=== PATIENT | female | born 1945 | race Caucasian/White ===

== ENCOUNTER 2024-10-12 23:15 | Inpatient (IN) | payer MEDICARE, SELFPAY ==
[2024-10-12] VITALS (61 sets, daily range): BP systolic 52–226; BP diastolic 33–120; BMI 41.4
[2024-10-12 19:45] LABS: % Basophils 0.3 % (0-2); % Eosinophils 0.2 % (0-6); % Immature Granulocytes 2.4 % (0-0.5); % Lymphocytes 13.1 % (20.5-51.1); % Monocytes 8.7 % (1.7-9.3); % Neutrophils 75.3 % (42.2-75.2); Absolute Immature Granulocytes 0.4 10^3/uL (0-0.05); Absolute Lymphocytes 1.9 10^3/uL (1.2-3.4); Absolute Monocytes 1.3 10^3/uL (0.1-0.6); Absolute Neutrophils 11.1 10^3/uL (1.4-6.5); Hematocrit 33.4 % (37.0-47.0); Mean Corp Hgb Conc. 29.9 g/dL (33.0-37.0); Mean Corpuscular Hgb 29.5 pg (27.0-31.0); Mean Corpuscular Volume 98.5 fL (81.0-99.0); Mean Platelet Volume 10.1 fL (7.4-10.4); Nucleated Red Blood Cells % 0 %; Platelet Count 301 10^3/uL (130-400); Red Blood Cell Count 3.39 10^6/uL (4.20-5.40); Red Cell Dist. Width 14.6 % (11.5-14.5); White Blood Cell Count 14.8 10^3/uL (4.8-10.8)
[2024-10-12] MEDS: NSS 1000 IV (19:51)
[2024-10-12 19:59] LABS: Lactic Acid 7.1 mmol/L (0.7-2.0)
--- NOTE | 2024-10-12 20:03 | ED.GENMED ---
History of Present Illness
General
Chief Complaint: CODE
Source: patient and ambulance crew
Exam Limitations: clinical condition and altered mental status
Time Seen by Provider: 10/12/24 19:25
History of Present Illness
History of Present Illness:
70s to 80syear-old female presented as a Patria Marie, EMS was called for respiratory distress found with agonal respirations with no pulse small pupils intubated given Narcan epi CPR with regain of spontaneous rhythm initial AED stated no shock
advised, she was bucking the ventilator, with bloody secretions given Versed by EMS
Family came to bedside with her meds gabapentin baclofen Lasix metformin currently been on some antibiotics she uses THC Gummies possibly took too many
[id number] states that she had made comments about not wanting to live anymore, though they had a good day yesterday patient lives alone, has taken extra meds previously
Past History
Past History
ED Past Medical History: Other
ED Past Surgical History: Other
Social History
Tobacco: Other
Alcohol: Other
Drug: Other
Living: other
Employment: Other
Family History
Family History: Unable to obtain
Review of Systems
Review of Systems
Unable to obtain full review of systems at this time due to: intubated
All Other Systems: Not applicable
Phy Exam
Physical Exam
Physical Exam:
Physical Exam
General: Elderly female overbreathing the ventilator
Neck: ET tube in place bloody secretions in the ET tube
Heart: Tachycardic
Lungs: Breath sounds with positive ventilation
Abdomen: Obese with large reducible nontender hernia
Neuro: Pupils 4 OU overbreathing the ventilator
Skin: no rash
Psychiatric: well kept. interactive and cooperative
Extremities: no edema. no calf tenderness. negative homans. good distal pulses
Course
Orders/Labs/Results
Orders:
Orders
10/12/24 19:25
0.9% Sodium Chloride 1000 ml [Nss] 1,000 ml IV BOLUS
10/12/24 19:26
Electrocardiogram (*1) Stat
Reason for Study: Other
Other Reason for Exam: CODE
CT Chest/abd/pelvis Angio W/wo Urgent
Comment:
Reason For Exam: CODE
CT Head W/o Iv Contrast Urgent
Comment:
Reason For Exam: CODE
EKG- Treatment ONCE
Arterial Blood Gas Urgent
%Oxygen/Room Air: VENT
CR Chest Portable - 1 View Urgent
Comment:
Reason For Exam: CODE
Reason Study Needs to be Portable: Patient Unstable
10/12/24 19:30
Propofol 1,000,000 Mcg/100 ml [Diprivan] 1,000,000 mcg in 100 ml IV PER PROTOCOL
Indication:: Deep Sedation
Begin Infusion:: Now
Goal:: RASS -3 to -5 or BIS < 60 or ventilator synchrony
Maximum dose in mcg/kg/min:: 50
Initial Dose in mcg/kg/min:: 20
Titration Instructions:: Titrate by 5-10 mcg/kg/min every 5 minutes until RASS -3 to -5 or
Titration Instructions:: BIS < 60 or ventilator synchrony is met.
Titration Instructions:: Administer analgesia bolus dose(s) & titrate analgesia prior to
Titration Instructions:: adjusting sedation.
Taper Instructions:: If RASS is at or below goal for 4 consecutive hours decrease infusion by
Taper Instructions:: 5-10 mcg/kg/min every 2 hours. Do not wean infusion to off if patient is
Taper Instructions:: receiving a continuous NMBA or has received bolus NMBA with the past 3 hrs
Over-sedation Instructions:: If BIS < 40 and synchronous with ventilator decrease infusion by
Over-sedation Instructions:: 5-10 mcg/kg/min every 2 hour until BIS = 40-60.
Notify provider:: immediately if patient exhibits signs/symptoms of propofol-related
Notify provider:: infusion syndrome.
Additional Instructions:: Patient MUST be mechanically ventilated and MUST receive analgesia.
10/12/24 19:33
ABG [Arterial Blood Gas] Stat
%Oxygen/Room Air: VENT
10/12/24 19:36
Acetaminophen Urgent
Comment: ADD ON
Alcohol Urgent
Complete Blood Count/With Diff Urgent
Comprehensive Metabolic Panel Urgent
Lactic Acid Urgent
PTT Urgent
Prothrombin Time Urgent
Salicylate Urgent
Comment: ADD ON
Triglycerides Routine
Comment: baseline levels with propofol infusion
Troponin I Urgent
10/12/24 20:00
NORepinephrine 4 MG/250 ML [Levophed] 4 mg in 250 ml .ROUTE .STK-MED
10/12/24 20:05
Urinalysis Reflex To Culture Urgent
Date Specimen was Collected: 10/12/24
Time Specimen was Collected: 20:02
Urine Drug Abuse Screen Urgent
Date Specimen was Collected: 10/12/24
Time Specimen was Collected: 20:02
Urine Microscopic Reflex Cult Urgent
Urine Culture Urgent
DANELLE Source: U
Specimen Description:
Date Specimen was Collected: 10/12/24
Time Specimen was Collected: 20:02
10/12/24 20:30
NORepinephrine 4 MG/250 ML [Levophed] 4 mg in 250 ml IV PER PROTOCOL
Initial dose in mcg/min, then titrate:: 2
Titrate to keep:: SBP > 90 mmHg
Titrate by mcg/min:: 1-2 mcg/min
Frequency of titrations (minutes):: 5
Maximum dose in ICU in mcg/min:: 30
Maximum dose in IMU in mcg/min:: 8
Maximum dose in IVU in mcg/min:: 4
Begin to taper infusion when:: Remained at goal for 4hrs
Taper by mcg/min:: 1-2 mcg/min
Frequency of taper (minutes) if patient maintains goal:: 30
Taper to off?: Yes
If infusion off & no longer maintaining goal:: Contact Provider
10/12/24 21:12
Add On- LAB Urgent
Tests Added?: Salicylate acetaminophen
10/15/24 06:00
Triglycerides Q3D
Comment: every 72 hours while patient is on propofol
10/18/24 06:00
Triglycerides Q3D
Comment: every 72 hours while patient is on propofol
10/21/24 06:00
Triglycerides Q3D
Comment: every 72 hours while patient is on propofol
Abnormal Lab Results
10/12/24 10/12/24
19:36 20:05
WBC 14.8 H 10^3/uL
(4.8-10.8)
RBC 3.39 L 10^6/uL
(4.20-5.40)
Hgb 10.0 L g/dL
(12.0-16.0)
Hct 33.4 L %
(37.0-47.0)
MCHC 29.9 L g/dL
(33.0-37.0)
RDW 14.6 H %
(11.5-14.5)
Abs Immat Gran (auto) 0.4 H 10^3/uL
(0-0.05)
Absolute Neuts (auto) 11.1 H 10^3/uL
(1.4-6.5)
Absolute Monos (auto) 1.3 H 10^3/uL
(0.1-0.6)
Immature Gran % 2.4 H %
(0-0.5)
Neutrophils % 75.3 H %
(42.2-75.2)
Lymphocytes % 13.1 L %
(20.5-51.1)
PT 14.9 H Sec
(11.4-14.6)
Chloride 108 H mmol/L
(98-107)
Carbon Dioxide 19 L mmol/L
(22-30)
BUN 33 H mg/dl
(7-17)
Creatinine 1.8 H mg/dL
(0.6-1.0)
Glucose 322 H mg/dl
(70-99)
Lactic Acid 7.1 H* mmol/L
(0.7-2.0)
AST 170 H U/L
(14-36)
ALT 64 H U/L
(0-35)
Troponin I 0.156 H* ng/ml
Triglycerides 154 H mg/dl
(10-149)
Ur Occult Blood Reflex 2+ A
(Negative)
Urine RBC 11-15 A /HPF
(0-2)
Urine Bacteria (Reflex) Many A
(Negative)
Urine Glucose 2+ A
(Negative)
Urine Albumin (Reflex) 3+ A
(Neg - Trace)
10/12/24 19:36
10/12/24 19:36
Vital Signs
Initial and Last Documented VS:
Initial Vital Signs
Temp Pulse Resp BP Pulse Ox
97.3 F 90 17 73/39 97
10/12/24 19:30 10/12/24 19:30 10/12/24 19:30 10/12/24 19:30 10/12/24 19:30
Last Documented Vital Signs
Temp Pulse Resp BP Pulse Ox
97.3 F 125 20 149/52 99
10/12/24 19:30 10/12/24 20:30 10/12/24 20:30 10/12/24 20:30 10/12/24 20:30
MDM/Problems Addressed
Differential Diagnosis Includes:
Respiratory arrest cardiac arrest PE sepsis aspiration heart failure pneumonia primary arrhythmia
MDM/Problems Addressed:
Respiratory rate
*Radiology
Radiology exam reviewed: radiology read reviewed
*Pulse Oximetry
Patient hypoxic: no
*EKG
Interpreted by ED Provider?: Yes
Interpretation: abnormal
Comparison EKG: no comparison EKG present
Heart Rate: 144
Rate: tachycardiac
Rhythm: a-fib
Ischemia: non-specific ST changes
*Metal Sheet Roller Operator Interpretation
Rate: tachycardiac
Interpretation: abnormal
Heart Rate: 140
Rhythm: a-fib
*Critical Care Note
Total Time (30-74mins, 75-104mins- exclusive of procedures): 30
ED Attending Note
-
Portions of this chart may have been created with voice recognition software.� Occasional wrong word or��sound alike� substitutions may have occurred due to the inherent limitations of voice recognition software.
Discharge Plan
Departure
Prescriptions:
No Action
gabapentin 600 mg Tablet
600 mg PO TID
metformin 850 mg Tablet
850 mg PO TIDWMEAL
pioglitazone 45 mg Tablet
45 mg PO DAILY
baclofen 10 mg Tablet
10 mg PO QID
cephalexin [Keflex] 500 mg Capsule
500 mg PO TID
furosemide [Lasix] 20 mg Tablet
20 mg PO PRN PRN (Reason: swelling)
Rx Instructions:
take 1 daily as needed
omeprazole 20 mg Tablet,Delayed Release (Dr/Ec)
20 mg PO DAILY
Daily Probiotic 2.5 billion cell Capsule
1 cap PO DAILY
Referrals:
UNKNOWN - PT DOES,NOT KNOW [Family Provider]
Interventions
Interventions:
*Risk Screen - Suicide Last Done: 10/12/24 20:06
*Neglect/Abuse Screening Last Done: 10/12/24 20:06
*ED- Fall Risk Assessment Last Done: 10/12/24 20:06
*ED COVID-19 Vaccine History Last Done: 10/12/24 20:06
ED- Cardiac Assessment Last Done: 10/12/24 20:06
ED- Pulmonary Assessment Last Done: 10/12/24 20:06
Discharge Date and Time
Print Language: TOGOLESE
[2024-10-12 20:05] LABS: APTT 30.8 Sec (23.4-35.0); INR 1.14; PT 14.9 Sec (11.4-14.6)
[2024-10-12 20:08] LABS: AST (SGOT) 170 U/L (14-36); Albumin 4.1 g/dl (3.5-5.0); Alkaline Phosphatase 60 U/L (38-126); Blood Urea Nitrogen 33 mg/dl (7-17); Calcium 8.6 mg/dl (8.4-10.2); Carbon Dioxide 19 mmol/L (22-30); Chloride 108 mmol/L (98-107); Estimated Creatinine Clearance 29 ml/min; Glucose 322 mg/dl (70-99); Potassium 4.6 mmol/L (3.5-5.1); Sodium 143 mmol/L (135-145); Total Bilirubin 0.4 mg/dl (0.2-1.3); Total Protein 6.7 g/dl (6.3-8.2); Triglycerides 154 mg/dl (10-149); eGFR 27.96
[2024-10-12 20:09] LABS: Alcohol None Detected
[2024-10-12 20:14] LABS: ALT (SGPT) 64 U/L (0-35)
[2024-10-12 20:17] LABS: Troponin I 0.156 ng/ml
[2024-10-12 20:17] LABS: Urine Albumin 3+ (Neg - Trace); Urine Bilirubin Negative (Negative); Urine Character Clear (Clear); Urine Color Yellow; Urine Glucose 2+ (Negative); Urine Ketone Negative (Negative); Urine Leukocyte Negative (Negative); Urine Nitrite Negative (Negative); Urine Occult Blood 2+ (Negative); Urine Specific Gravity 1.015 (<1.030); Urine Urobilinogen Negative (Neg - 1+)
[2024-10-12] MEDS: DIPRIVAN 100 IV (20:19)
[2024-10-12 20:23] LABS: Urine Bacteria Many (Negative)
[2024-10-12] MEDS: LEVOPHED 250 IV (20:25)
[2024-10-12 20:27] LABS: Amphetamines Negative (Negative); Barbiturates Negative (Negative); Benzodiazepines Negative (Negative); Buprenorphine Negative (Negative); Cocaine Negative (Negative); Marijuana Negative (Negative); Methadone Negative (Negative); Methamphetamines Negative (Negative); Opiates Negative (Negative); Phencyclidine Negative (Negative); Tricyclic Antidepressants Negative (Negative)
[2024-10-12 21:26] LABS: Acetaminophen < 10 ug/ml (10-30); Salicylate < 1.0 mg/dl (2.0-20.0)
[2024-10-12 21:41] LABS: B.E. -6.3 mmol/L; HCO3 21.9 mmol/L (21-28); O2 Saturation % 94.8 % (94-98); PCO2 56 mmHg (32-35); PO2 73 mmHg (83-108)
[2024-10-12] MEDS: CARDIZEM 125 IV (22:02)
[2024-10-12] MEDS: ZOSYN 50 IV (22:09)
[2024-10-12] MEDS: VANCOCIN 530 MG IV (22:11)
--- NOTE | 2024-10-12 22:50 | HPS.HSE ---
Family Physician
-
Family Physician: NOT KNOW UNKNOWN - PT DOES
Chief Complaint
-
respiratory distress
History of Present Illness
79-year-old female past medical history of diabetes, hypercholesterolemia, neuropathy, GERD, presenting for cardiac arrest. Patient son came to visit her and noticed that she was having respiratory distress and agonal. Patient lives alone. She
was unresponsive and he called EMS who shortly arrived and perform CPR and gave epinephrine. Shock was not advised. She was intubated. She was noted to have pinpoint pupils. She was given Narcan with reportedly some improvement. She had bloody
secretions and was given Versed by EMS.
History is obtained from son and [id number]. They note that she has not been in any respiratory distress or shortness of breath recently. There was some question of her possibly taking too many of her medications and possibly taking THC
Gummies or overdosing on her medications. Apparently there was a comment about her not wanting to live anymore although she had a good day yesterday.
She was recently started on Keflex for infection of her right leg by her primary care physician. This has been an ongoing issue and she was treated with 2 prior courses of antibiotics without improvement.
She does not have any history of cardiac problems.
She does not smoke or drink alcohol or use drugs.
Medical History
Past Medical History
Past Medical History: Reports Other (diabetes, hypercholesterolemia, neuropathy, GERD,)
Past Surgical History: Reports None
Social History
Tobacco: Non-smoker
Alcohol: None
Drug: None
Family History
Family History: Not pertinent
Allergies / Home Medications
Allergies reflects when Allergies were last updated in [facility].
Home Medications with original date entered in [facility]
Allergy/Medication List:
Allergies
Allergy/AdvReac Type Severity Reaction Status Date / Time
No Allergy Information Allergy Verified 10/12/24 19:30
Available
Home Medications
Lactobacillus acidophilus-Bifidobac.animalis 2.5 billion cell capsule (Daily Probiotic) 1 cap PO DAILY 10/12/24
baclofen 10 mg tablet 10 mg PO QID 10/12/24
cephalexin 500 mg capsule 500 mg PO TID 10/12/24
furosemide 20 mg tablet (Lasix) 20 mg PO PRN PRN swelling 10/12/24
gabapentin 600 mg tablet 600 mg PO TID 10/12/24
metformin 850 mg tablet 850 mg PO TIDWMEAL 10/12/24
omeprazole 20 mg tablet,delayed release 20 mg PO DAILY 10/12/24
pioglitazone 45 mg tablet 45 mg PO DAILY 10/12/24
Review of Systems
-
History Source: Family
A 12 point ROS was completed and negative except as noted: No
Physical Exam
Vital Signs
Vital Signs
Temp Pulse Resp BP Pulse Ox
97.3 F 88 28 75/42 93
10/12/24 19:30 10/12/24 22:45 10/12/24 21:22 10/12/24 22:45 10/12/24 22:45
Physical Exam
General: Well Developed, Well Nourished and No Apparent Distress
HEENT: NormoCephalic, Moist mucous membranes and Atraumatic
Respiratory: Clear
Cardiac: S1/S2 and Regular Rhythm; No Murmur or Rub
GI: Soft, Non Tender, Non Distended and Normal Bowel Sounds; No Organomegaly
Rectal: Deferred by Provider
Musculoskeletal: No Clubbing, No Cyanosis and No Edema
Skin: No Rash
Neuro: Nonfocal/grossly intact
Laboratory Results
-
10/12/24 19:36
10/12/24 19:36
Laboratory Results
PT 14.9 Sec (11.4-14.6) H 10/12/24 19:36
INR 1.14 10/12/24 19:36
APTT 30.8 Sec (23.4-35.0) 10/12/24 19:36
pH 7.20 (7.35-7.45) L 10/12/24 21:29
pCO2 56 mmHg (32-35) H 10/12/24 21:29
pO2 73 mmHg (83-108) L 10/12/24 21:29
HCO3 21.9 mmol/L (21-28) 10/12/24 21:29
Lactic Acid 7.1 mmol/L (0.7-2.0) H* 10/12/24 19:36
Total Bilirubin 0.4 mg/dl (0.2-1.3) 10/12/24 19:36
AST 170 U/L (14-36) H 10/12/24 19:36
ALT 64 U/L (0-35) H 10/12/24 19:36
Alkaline Phosphatase 60 U/L (38-126) 10/12/24 19:36
Troponin I 0.156 ng/ml H* 10/12/24 19:36
Data Reviewed
-
Lab Data: Labs Reviewed by me
Old Records: Reviewed
Impression/Plan
-
IMPRESSION:
PLAN:
# Septic shock secondary to multilobar pneumonia
-Leukocytosis
-Lactic acid 7
- CT chest abdomen pelvis shows moderate multilobar pneumonia,
- CT head shows no acute abnormality
- IV fluids
-Blood cultures
- Vancomycin/Zosyn
- Levophed started but patient became hypotensive so this was stopped but again had to be restarted
- Trend lactate
- On propofol drip
# Cardiac arrest possibly likely secondary to hypoxemic respiratory failure from pneumonia
-No clear evidence of drug overdose
- UDS negative
- Tylenol negative, salicylates negative
- Alcohol level negative
# Acute kidney injury
- IV fluids
- Hold Lasix
# New onset atrial fibrillation with RVR secondary to septic shock
- Cardizem drip started, and later stopped after patient in sinus rhythm
# Nonischemic myocardial injury likely from cardiac arrest/demand ischemia from atrial fibrillation with RVR/sepsis
- Troponin of 0.156
- Trend troponins
- Check EKG
# Hyperglycemia secondary to infection
# Type 2 diabetes
- Hold metformin, pioglitazone
- Insulin sliding scale
# Right leg infection
- Was started on Keflex 2 days ago
# Transaminitis secondary to septic shock/cardiac arrest
- Continue to monitor
Presumably chronic anemia
- Hemoglobin 10
GERD
- IV Protonix 40 daily
Chronic neuropathy/chronic pain
- Normally on baclofen
Full code
DVT prophylaxis�Heparin
N.p.o.
[2024-10-13] VITALS (27 sets, daily range): BP systolic 75–150; BP diastolic 27–91; BMI 41.3; BMI 41.2
[2024-10-13] MEDS: NSS 1000 IV ×2 (00:16→08:58)
[2024-10-13 01:24] LABS: Glucose - Point of Care 203 mg/dl (70-99)
[2024-10-13] MEDS: NOVOLIN R 4 UNITS IV (02:34)
[2024-10-13 02:38] LABS: Glucose - Point of Care 234 mg/dl (70-99)
[2024-10-13] MEDS: NOVOLIN R INSULIN INFUSION 100 IV (02:39)
--- NOTE | 2024-10-13 03:21 | PTCARENOTE ---
Pt received from ED. Intubated, on propofol and levophed. No response to verbal stimuli. +corneal reflex, pupils 2mm and sluggish. Weak cough/gag. Moves hands/feet, weak. Placed on cerebell monitor as ordered, seizure burden 0% at this time. Sinus
tach, 120s. remains on levophed to maintain MAP >65. # 6.5 ETT, 24 @ the lip, AC 24/450/40%/+5. Suctioned for bloody secretions, crackles t/o. OGT to LIWS with brown output. Mcgowan in place, draining yellow urine. B/L LE cellulitis, R with small open
area on posterior calf.
[2024-10-13 03:30] LABS: Glucose - Point of Care 176 mg/dl (70-99)
--- NOTE | 2024-10-13 04:56 | W.PN.SEPSIS ---
Sepsis
Vital Signs
Temp Pulse Resp BP Pulse Ox
36.1 F L 115 11 138/74 100
10/13/24 00:45 10/13/24 04:30 10/13/24 04:30 10/13/24 03:45 10/13/24 04:30
Physical Exam
Physical Exam:
A focused exam was performed after fluid resuscitation.
Capillary Refill
Bilateral Upper Extremity:
Raj Time: Less than 3 sec
Bilateral Lower Extremity:
Raj Time: Less than 3 sec
Pulse Evaluation
Bilateral Radial:
Pulse Evaluation: Present
Bilateral Dorsalis Pedis:
Pulse Evaluation: Present
--- NOTE | 2024-10-13 04:57 | W.PN.UPDATE ---
Update Note
Progress Note Update
ARTERIAL LINE (A-Line) PLACEMENT
Date: 10/13/24
Time: 0445
Indication: Hemodynamic monitoring
Consent: implied, emergent
A time-out was completed verifying correct patient, procedure, site, positioning, and special equipment if applicable. Francesco�s test was performed to ensure adequate perfusion. The patient�s left wrist was prepped and draped in sterile fashion. A 20G
Arrow arterial line was introduced into the radial artery. The catheter was threaded over the guide wire and the needle was removed with appropriate pulsatile�blood return. The catheter was then sutured with a sterile dressing. Perfusion to the
extremity distal to the point of catheter insertion was checked and found to be adequate.
Estimated Blood Loss: <5cc
The patient tolerated the procedure well and there were no complications.
[2024-10-13] MEDS: ZOSYN 50 IV ×4 (04:59→21:08)
[2024-10-13 05:05] LABS: Glucose - Point of Care 42 mg/dl (70-99)
[2024-10-13] MEDS: DEXTROSE 50% SYRINGE 12.5 GRAMS IV ×2 (05:06→06:48)
[2024-10-13 05:07] LABS: % Basophils 0.1 % (0-2); % Immature Granulocytes 0.7 % (0-0.5); % Lymphocytes 6.7 % (20.5-51.1); % Neutrophils 84.5 % (42.2-75.2); Absolute Immature Granulocytes 0.1 10^3/uL (0-0.05); Absolute Lymphocytes 0.9 10^3/uL (1.2-3.4); Absolute Monocytes 1.1 10^3/uL (0.1-0.6); Absolute Neutrophils 11.3 10^3/uL (1.4-6.5); Hematocrit 29.8 % (37.0-47.0); Hemoglobin 9.6 g/dL (12.0-16.0); Mean Corp Hgb Conc. 32.2 g/dL (33.0-37.0); Mean Corpuscular Hgb 29.4 pg (27.0-31.0); Mean Corpuscular Volume 91.1 fL (81.0-99.0); Mean Platelet Volume 10.3 fL (7.4-10.4); Nucleated Red Blood Cells % 0 %; Platelet Count 305 10^3/uL (130-400); Red Blood Cell Count 3.27 10^6/uL (4.20-5.40); Red Cell Dist. Width 14.2 % (11.5-14.5); White Blood Cell Count 13.4 10^3/uL (4.8-10.8)
[2024-10-13 05:20] LABS: Glucose - Point of Care 80 mg/dl (70-99)
[2024-10-13 05:23] LABS: COVID-19 Antigen Negative (Negative)
[2024-10-13 05:34] LABS: Lactic Acid 3.4 mmol/L (0.7-2.0)
[2024-10-13 05:38] LABS: ALT (SGPT) 62 U/L (0-35); AST (SGOT) 132 U/L (14-36); Albumin 3.7 g/dl (3.5-5.0); Alkaline Phosphatase 60 U/L (38-126); Blood Urea Nitrogen 36 mg/dl (7-17); Calcium 8.5 mg/dl (8.4-10.2); Carbon Dioxide 20 mmol/L (22-30); Chloride 113 mmol/L (98-107); Estimated Creatinine Clearance 29 ml/min; Glucose < 30 mg/dl (70-99); Magnesium 0.8 mg/dl (1.6-2.3); Phosphorus 2.8 mg/dl (2.5-4.5); Potassium 3.8 mmol/L (3.5-5.1); Sodium 141 mmol/L (135-145); Total Bilirubin 0.5 mg/dl (0.2-1.3); Total Protein 6.3 g/dl (6.3-8.2); eGFR 27.96
[2024-10-13] MEDS: MAGNESIUM SULFATE 100 IV (05:48)
--- NOTE | 2024-10-13 06:37 | W.PN.UPDATE ---
Update Note
Progress Note Update
3615- Patient went into rapid afib heart rate 160s, SBP 70s. Started amiodarone gtt with amio 150 bolus IV. Heart rate improved 100s. Patient continues on levophed gtt.
[2024-10-13 06:41] LABS: Glucose - Point of Care 55 mg/dl (70-99)
--- NOTE | 2024-10-13 06:43 | PHA.VAN.IN ---
Addendum entered and electronically signed by Parisa Ibarra [facility] 10/13/24 08:45:
Laboratory Tests
10/13/24
08:06
Random Vancomycin 11.8
Appropriate to continue with 1g x1 today
Original Note:
Assessment
- Assessment
Renal Function: Unknown baseline
Concomitant Antimicrobials: piperacillin/tazobactam
Plan
- Plan
Initial / Loading Dose: 1500mg - 10/12 22:11
Maintenance Regimen: dosing by level - give additional 1000mg x1
Monitoring: random 10/14 0600
MRSA Screen: Ordered per protocol
Pharmacokinetics Vancomycin I
- -
Patient Age: 79
Patient Sex: Female
Vancomycin Day #: 1
Indication: Pulmonary/Respiratory
Requesting Provider: Dr. Resendiz
Height / Weight:
Height 5 ft 3 in
Actual Weight 105.6 kg
Pertinent Past Medical History: BMI ~41
- Vital Signs / Lab Results
Temp Pulse Resp BP Pulse Ox
100.4 F H 110 28 138/74 100
10/13/24 06:06 10/13/24 05:15 10/13/24 05:15 10/13/24 03:45 10/13/24 05:15
Lab Results - Hematology
10/12/24 10/13/24
19:36 04:51
WBC 14.8 H 13.4 H
Lab Results - Chemistry
10/12/24 10/13/24
19:36 04:51
BUN 33 H 36 H
Creatinine 1.8 H 1.8 H
Estimated Creat Clear 29 29
Albumin 4.1 3.7
10/12/24 10/13/24
19:36 04:51
Lactic Acid 7.1 H* 3.4 H
Lab Results - Urine
10/12/24
20:05
Urine Nitrite (Reflex) Negative
Leukocyte Esterase Rfl Negative
Urine WBC (Reflex) 6-10
Ur Squamous Epith Cells 3-5
Urine Bacteria (Reflex) Many A
Microbiology Results
10/13/24 04:51 Influenza Types A & B (OLIVIA) - Final
Nasal Swab Negative for Influenza A & B, NAAT
Negative results must be combined with clinical observations
and patient history.
Nucleic Acid Amplification test (NAAT)performed on the
[employer] platform.
[2024-10-13] MEDS: NEO-SYNEPHRINE 250 IV ×4 (06:44→17:24)
[2024-10-13] MEDS: PITRESSIN 100 IV ×2 (06:45→14:06)
[2024-10-13] MEDS: CORDARONE 103 MG IV (06:56)
[2024-10-13] MEDS: TYLENOL ORAL SOLUTION 650 MG TUBE (07:00)
[2024-10-13 07:10] LABS: Glucose - Point of Care 204 mg/dl (70-99)
[2024-10-13] MEDS: LEVOPHED 250 IV (07:30)
--- NOTE | 2024-10-13 07:41 | PTCARENOTE ---
Pt with episode of hypotension and tachycardia, rapid afib. Levophed switched to constance and vaso. Amio bolus and gtt as per order. Labile BP and HR. Report given to oncoming RN.
--- NOTE | 2024-10-13 08:16 | W.PN.HOSP.TC ---
Addendum entered and electronically signed by Swapnil Barajas DO 10/13/24 15:44:
Discussed with cardiology and ICU. Low suspicion for ACS, more likely demand ischemia from cardiac arrest. May ultimately need AC with atrial fibrillation if she recovers though cardiology okay with holding off on heparin drip for now until more
information gathered in underlying bleeding thoroughly ruled out
Patient was started on insulin drip for glycemic control. 1 episode of hypoglycemia though stable thereafter
Original Note:
Today's Communication/Plan
-
Broad-spectrum antibiotics
Vasopressors
Amio + Heparin drips
TTE
follow cultures
Assessment / Plan
Assessment / Plan
#[id number] cardiac arrest
#Hypomagnesemia
-Suspect respiratory driven event 2/2 CAP v. aspiration; cannot rule out torsades with recent mag level 0.8
-Unclear amount of downtime however no obvious signs of anoxic brain injury initially
-Initial concern for polypharmacy versus extra doses of medicines however tox screen negative
-Imaging on arrival showed findings suggestive of moderate multilobar PNA
-No known history of heart disease, lung disease, family history of early cardiac
-As of this morning does respond to external stimuli, undergoing EEG
Plan
-Order echocardiogram to assess LVEF and valves, monitor telemetry
-Consideration of cooling protocol per ICU
-Trend troponin to peak, serial ECG
-Replete magnesium (>2) and potassium (>4)
-Follow-up EEG
#VDRF
#Acute hypoxemic respiratory failure
#Septic shock secondary to CAP
#Prerenal ALONSO
-Suspect initial pneumonia as catalyst for sequence of events that brought her here
-Cannot completely rule out aspiration event though no history of dysphagia
-Intubated in the field and started on MV here; on CMV 24/450/60/5, Peak 40
-Started on IV vancomycin and Zosyn empirically after cultures in the ED
-Most recent blood gas shows pH 7.33/PO2 81; requiring 3 vasopressors
Plan
-Continue with and wean vasopressors and give IVF; MAP goal >65
-Trend ABG and monitor daily with serial CXR
-Continue broad-spectrum antibiotics and follow cultures
-Monitor BMP, UOP, CBC, temperature curve
-SAT + SBT when improved
#New onset AF with RVR
-Developed new onset AF and developed RVR with heart rate near 160 overnight
-[id number] score >3, likely nonvalvular; indication for AC such as DOAC
-Started on amiodarone drip, continue on telemetry
-Hemodynamically adequate on vasopressors
Plan
-Continue IV amiodarone
-Start IV heparin drip
-Cardiology consulted
-Telemetry
#Elevated troponin
-Suspect an NIMI with cardiac arrest; family denies any previous cardiac history
-Troponin has up trended with most recent value new 1.4; no ischemic findings on ECG
-Unable to provide history of associated chest pain though none reported recently
-Was started on IV heparin drip as above for new onset AF and cardioembolic prophylaxis
Plan
-Trend troponin to peak with serial ECG
-Continue IV heparin drip as above
-Follow-up echo for new WMA
-Telemetry
#NIDDM with neuropathy
-Home regimen includes metformin 3 times daily (?) and pioglitazone
-Also takes gabapentin 3 times daily for associated peripheral neuropathy
-Started on ISS with Accu-Cheks here
-BG goal 140-180
#GERD
-Home regimen includes omeprazole
-No history of Guerrero's esophagus or erosive disease
#Dyslipidemia
-No known ASCVD history, family denies coronary stents
-Home regimen does not include statin therapy
-Should be on at least moderate intensity with diabetes history
Diet: N.p.o.
DVT prophylaxis: SQ heparin
CODE STATUS: Full code
I discussed CODE STATUS with family at the bedside. They state that the patient has stated in the past that she did not want to be kept alive artificially. Remains full code for now, will discuss further when more family arrives into town to visit
Anticipated Discharge: > 48 hours
Subjective/Interval History
-
Date of Service: October 13, 2024
Seen and examined at the bedside. No acute events since admission. Febrile at 100.9 �F, hemodynamically adequate on 3 vasopressors, supported on mechanical ventilator with P peak equal 40 mmHg
Magnesium improved from 0.8-2.1 after repletion with 4 g. Creatinine stable at 1.8 x 3 lab draws on IVF and pressors.
Unable to obtain ROS due to intubated status. Does respond to external stimuli
Objective Data
-
Labs:
Laboratory Results
10/12/24 10/12/24 10/13/24
19:26 21:29 04:51
WBC 13.4 H
Hgb 9.6 L
Hct 29.8 L
Plt Count 305
HCO3 Cancelled 21.9
Sodium 141
Potassium 3.8
Chloride 113 H
Carbon Dioxide 20 L
BUN 36 H
Creatinine 1.8 H
Glucose < 30 L*
Calcium 8.5
Total Bilirubin 0.5
AST 132 H
ALT 62 H
Alkaline Phosphatase 60
Vital Signs:
Vital Signs
Temp Pulse Resp BP Pulse Ox
100.9 F H 73 21 138/74 97
10/13/24 07:00 10/13/24 07:30 10/13/24 07:30 10/13/24 03:45 10/13/24 07:20
I&O
10/12/24 10/13/24 10/14/24
06:59 06:59 06:59
Intake Total 347.8 / 347.8
Output Total 375 / 375
Balance -27.2 / -27.2
Review of Systems
-
Unable to obtain full review of systems at this time due to: Patient Intubation
Physical Exam
-
General: Well Developed, No Apparent Distress, Intubated and Morbidly Obese
HEENT: Normocephalic, Atraumatic, Moist Mucous Membranes, Anicteric and PERRLA
Respiratory: Rhonchi and Non Labored Respirations; Negative Wheezes, Rales or Accessory Resp Muscle Use
Cardiac: S1/S2 and Irregular Rhythm; Negative Murmur, Rub, JVD, Gallop or Tachycardic
GI: Soft, Nontender, Nondistended and Normal Bowel Sounds
Musculoskeletal: No Clubbing, No Cyanosis and No Edema
Skin: Warm and Dry; Negative Rash or Jaundice
Neuro: Sedated and Nonfocal/Grossly Intact
Data Reviewed
-
Labs: Labs Reviewed by me, Discussed with Physician (Midwife) and Discussed with Patient
--- NOTE | 2024-10-13 08:19 | CON.INTV ---
Consultation
Consultation Request
Date/Time Consultation Requested: 10/13/2024
Date/Time Consultation Performed: 10/13/2024
Requesting Provider: NHAN Mak
Performing Provider: Dr. Roy
Reason for Consultation: Cardiac arrest
Medical History
-
Chief Complaint: Found unresponsive without pulse
History of Present Illness:
79-year-old female with a past medical history of JAVIER, paroxysmal A-fib, DM type II, fibromyalgia, history of UTI, anemia, depression, anxiety, and chronic back/leg pain who presented with [id number] cardiac arrest. History obtained from
medical records and family members. Patient's son, Frantz and [id number], Bonnie in addition to patient's daughter, Claudette, all present at bedside and assisted with the history. Patient was found unresponsive at around 530�6 PM on
10/12/2024. She was last known normal the morning prior although she says she was not feeling well at that time. The patient does live alone. When the patient was found unresponsive, 911 was called, and CPR was started 10 minutes after the 911
call. No shockable rhythm, 1 mg of epinephrine was given in addition to lidocaine. She also was given Narcan with reportedly some improvement in her reactions. She was intubated in the field and given a total of 10 mg Versed by EMS. She
reportedly was given Keflex recently for right lower extremity cellulitis which is an ongoing issue for her with 2 prior courses of antibiotics without improvement. Initially she was afebrile to 97.3 �F, pulse rate 90, respiratory rate of 17, BP
73/39 and saturating 97%. Labs showed leukocytosis to 14.8, Hb 10, hypercapnia with [id number], pH 7.2, serum bicarbonate level 19, creatinine 1.8, glucose 322, lactate 7.1, troponin 0.156, urine drug screen negative, alcohol level negative and
COVID-19 antigen negative. Blood cultures were collected in addition to a urine culture. CT head, chest, abdomen, pelvis were all performed showing moderate multifocal pneumonia and no acute intracranial abnormality. Found to be in rapid A-fib
and was given Cardizem, and also 1 L NS 0.9%, Vanco and Zosyn. Developed hypotension requiring Levophed. She was admitted to the ICU and advertising display rotator services consulted for additional management/recommendations.
When I saw the patient this morning she was intubated on AC/CMV at 24/400/40%/5 with PIP 39 cmH2O, plateau pressure 26 cmH2O, VTe 373 mL, and breathing at 24 breaths/minute. Current heart rate 72, BP via A-line 156/64, and saturating 97%.
Currently on insulin drip at 1.2 units/h, and on Mohsen-Synephrine at 200 mcg/min, Levophed at 1 mcg/min and vasopressin at 0.03 units/min. She remains unresponsive. Ceribell is currently attached and showing zero seizure burden.
PMHx: History of JAVIER, paroxysmal A-fib, DM type II, fibromyalgia, hayfever, pleurisy, history of UTI, anemia, eczema, depression, anxiety, chronic back/leg pain
PSHx: Cholecystectomy, tonsillectomy
Past Medical History
Past Medical History: Other (Above as per HPI)
Past Surgical History: Other (Above as per HPI)
Social History
Tobacco: Non-smoker
Alcohol: Occasional (Rarely)
Drug: None
Family History
Family History: CAD (Father) and Diabetes (Mother, maternal grandfather, maternal uncle, maternal aunt, sibling)
Allergies / Home Medications
Allergies
Allergy/AdvReac Type Severity Reaction Status Date / Time
No Allergy Information Allergy Verified 10/12/24 19:30
Available
Home Medications
�Medication �Instructions �Recorded �Confirmed �Last Taken �Type
Lactobacillus 1 cap PO DAILY Supplement 10/12/24 10/12/24 Unknown History
acidophilus-Bifidobac.animalis 2.5
billion cell capsule (Daily
Probiotic)
baclofen 10 mg tablet 10 mg PO QID Muscle Spasms 10/12/24 10/12/24 Unknown History
cephalexin 500 mg capsule 500 mg PO TID Infection 10/12/24 10/12/24 Unknown History
furosemide 20 mg tablet (Lasix) 20 mg PO PRN PRN swelling 10/12/24 10/12/24 Unknown History
gabapentin 600 mg tablet 600 mg PO TID Pain 10/12/24 10/12/24 Unknown History
metformin 850 mg tablet 850 mg PO TIDWMEAL Diabetes 10/12/24 10/12/24 Unknown History
omeprazole 20 mg tablet,delayed 20 mg PO DAILY Gastrointestinal 10/12/24 10/12/24 Unknown History
release Issue
pioglitazone 45 mg tablet 45 mg PO DAILY Diabetes 10/12/24 10/12/24 Unknown History
Review of Systems
-
Unable to Obtain full review of systems at this time due to: Acuity and Patient Intubation
Vitals / Labs / Diagnostic Testing
Vital Signs
Temp Pulse Resp BP Pulse Ox
101 F H 74 24 138/74 97
10/13/24 09:09 10/13/24 10:30 10/13/24 10:30 10/13/24 03:45 10/13/24 10:30
Lab Data
10/13/24 04:51
10/13/24 10:01
Laboratory Results
10/12/24 10/12/24 10/12/24
19:26 19:36 21:29
PT 14.9 H
INR 1.14
APTT 30.8
pH Cancelled 7.20 L
pCO2 Cancelled 56 H
pO2 Cancelled 73 L
HCO3 Cancelled 21.9
O2 Delivery Level Cancelled
10/13/24
10:01
PT
INR
APTT
pH 7.33 L
pCO2 35
pO2 81 L
HCO3 18.5 L
O2 Delivery Level 40%
Microbiology
10/13/24 04:51 Urine Legionella Urinary Antigen - Final
Negative for Legionella pneumophila Serogroup 1 antigen.
A negative result does not rule out the possiblity of
Legionella infection due to other serogroups or species of
Legionella. Clinical correlation is recommended.
10/13/24 04:51 Urine Streptococcus pneumoniae Antigen (M - Final
Negative for Streptococcus pneumoniae antigen.
A negative result does not exclude infection with
Streptococcus pneumoniae. Clinical correlation is
recommended.
10/13/24 04:51 Nasal Swab Influenza Types A & B (OLIVIA) - Final
Negative for Influenza A & B, NAAT
Negative results must be combined with clinical observations
and patient history.
Nucleic Acid Amplification test (NAAT)performed on the
[employer] platform.
Diagnostic Testing:
Physical Exam
-
HEENT: Normocephalic, Anicteric and Other (Thick neck)
Cardiovascular: S1/S2, Regular Rhythm and Peripheral Edema (+2 lower extremity pitting edema bilaterally)
Respiratory: Wheeze (negative), Rhonchi (negative) and Other (Coarse breath sounds heard bilaterally)
GI: Soft, Distended (Significant abdominal obesity), Non Tender and Normal Bowel Sounds
Neurology: Tremors (negative) and Other (Absent gag, cough, and pupillary reflexes although intact corneal reflexes bilaterally; unresponsive; pupils 2 mm bilaterally and nonreactive)
Skin: Warm, Dry and Other (Erythema on the distal right lower extremity with bilateral chronic venous stasis dermatitis changes)
General: Respiratory Distress (negative), Chills (negative), Sweats (negative) and Other (Morbidly obese elderly female, intubated and unresponsive)
Assessment
-
Assessment: 79-year-old female with a past medical history of JAVIER, paroxysmal A-fib, DM type II, fibromyalgia, history of UTI, anemia, depression, anxiety, and chronic back/leg pain who presented with [id number] cardiac arrest. History
obtained from medical records and family members. Patient's son, Frantz and bctazors-ct-uxd, Bonnie in addition to patient's daughter, Claudette, all present at bedside and assisted with the history. Patient was found unresponsive at around
530�6 PM on 10/12/2024. She was last known normal the morning prior although she says she was not feeling well at that time. The patient does live alone. When the patient was found unresponsive, 911 was called, and CPR was started 10 minutes after
the 911 call. No shockable rhythm, 1 mg of epinephrine was given in addition to lidocaine. She also was given Narcan with reportedly some improvement in her reactions. She was intubated in the field and given a total of 10 mg Versed by EMS. She
reportedly was given Keflex recently for right lower extremity cellulitis which is an ongoing issue for her with 2 prior courses of antibiotics without improvement. Initially she was afebrile to 97.3 �F, pulse rate 90, respiratory rate of 17, BP
73/39 and saturating 97%. Labs showed leukocytosis to 14.8, Hb 10, hypercapnia with [id number], pH 7.2, serum bicarbonate level 19, creatinine 1.8, glucose 322, lactate 7.1, troponin 0.156, urine drug screen negative, alcohol level negative and
COVID-19 antigen negative. Blood cultures were collected in addition to a urine culture. CT head, chest, abdomen, pelvis were all performed showing moderate multifocal pneumonia and no acute intracranial abnormality. Found to be in rapid A-fib
and was given Cardizem, and also 1 L NS 0.9%, Vanco and Zosyn. Developed hypotension requiring Levophed. She was admitted to the ICU and advertising display rotator services consulted for additional management/recommendations.
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
Impression:
#Ale-qu-fffjpuhx cardiac arrest
#Acute respiratory failure with hypoxia + hypercapnia now on mechanical ventilation (intubated in the field via EMS on 10/12/2024)
#Multifocal pneumonia likely due to aspiration during cardiac arrest
#Atrial fibrillation with RVR requiring Cardizem drip and now on amiodarone drip and in NSR as of this morning (she carries a history of paroxysmal A-fib)
#Leukocytosis
#Anemia
#ALONSO
#Lactic acidosis
#Transaminitis
#Elevated troponin
#Unresponsiveness with suspected hypoxic-ischemic encephalopathy
#History of recurrent right lower extremity cellulitis
#GERD
#Morbid obesity
#DM type II
Plan:
- Patient was found unresponsive without a pulse and pupils pinpoint. When EMS arrived, CPR/ACLS started and she reportedly regained ROSC rather quickly although this was approximately 10 minutes after she was found unresponsive
- Family also found a letter that the patient wrote essentially stating that she did not want to continue living anymore and that she was ending her life
- The family says that the patient would not want to be living on machines and life support and they are heading towards withdrawal of care likely within the next 24 hours
- Initial CT head did not show any acute intracranial abnormality however this will be repeated tomorrow morning as she does not have a gag reflex and pupils are minimally reactive hence I do believe she is developing hypoxic�anoxic encephalopathy
- Neurology is now consulted
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
- She has received some pushes of sedation via fentanyl as she is biting the ET tube but there has been no purposeful movements or commands that she has followed since she has arrived here in the ICU, and the family is aware of this
- Apply cooling blanket to keep temperature at 36 �C; start Tylenol ATC for today to also help avoid fever
- Patient also developed rapid atrial fibrillation in the ER and is currently on amiodarone drip
- Cardiology consulted
- At the time of my evaluation, she was in normal sinus rhythm
- Replete K>4, Mg>2
- If she goes back into A-fib then keep HR<110
- Check echo; no concern for acute decompensated heart failure based on her CT chest from admission
- Continue with mechanical ventilation - given that the patient is unresponsive, she is not appropriate to do an SBT at this time
- Maintain plateau pressure <30 and titrate FiO2 + PEEP to keep SpO2 >90-94%
- Continue aspiration precautions; keep HOB >30-45�
- prn nebulized bronchodilators - not currently bronchospastic
- Oropharyngeal + deep ETT suctioning with subglottic as needed
- Daily CXR + blood gas
- Daily vent adjustments as needed based on blood gas and SaO2
- Try to avoid sedation if possible as this will help prognosticate
- Continue with broad-spectrum antibiotics with Vanco/Zosyn
- Follow-up respiratory culture, blood cultures + urine cultures
- Trend WBC and monitor temperature curve
- Patient is currently on Mohsen-Synephrine, Levophed and vasopressin � titrate these drips to maintain MAP>65
- She does have inadequate IV access and is a difficult stick hence PICC line was ordered however they were unable to advance the wire. IR will place a central line today
- Given that she is on multiple vasopressors with severe pneumonia, start hydrocortisone 50mg IV q6hr
- Trend lactate until <2 mmol/L
- Trend LFTs and sCr, monitor UOP with strict I/O; she is at risk of becoming volume overloaded given her ALONSO
- Maintain euglycemia with goal BG 140-180, currently on insulin drip
- Trend H/H and transfuse if needed to keep Hb>7-8g/dL; keep plt>20k, unless there is concern for bleeding then keep plt>50k
- DVT ppx: HSQ
Very poor prognosis. All of the family's questions were answered and emotional support was provided
Critical care statement: A total of 40 minutes of critical care time was provided for this patient today. This includes management of unstable vital signs, evaluation of the patient at bedside, reviewing the patient's pertinent medical records
including radiographs, microbiology, laboratory evaluations, and discussion with primary team, consultants, pharmacy, nutrition, physical therapy, case management, charge nurse, critical care nursing, and respiratory therapy.
Data:
CTA chest/abdomen/pelvis with/without contrast 10/12/2024:
Findings suggesting moderate multilobar pneumonia.
Bowel containing and nonbowel containing ventral hernias. No evidence of incarceration or strangulation. No evidence of obstruction.
Diverticulosis.
Mild volume overload or third spacing.
Mild cardiomegaly
Exophytic cystic left thyroid nodule best evaluated by a nonurgent dedicated thyroid ultrasound.
Patient was seen and evaluated on 10/13/2024
[2024-10-13 08:25] LABS: Glucose - Point of Care 125 mg/dl (70-99)
[2024-10-13] MEDS: SUBLIMAZE 50 MCG IV ×5 (08:25→17:04)
[2024-10-13] MEDS: PROTONIX IV 40 MG IV (08:26)
[2024-10-13] MEDS: HEPARIN 5000 UNITS SC ×2 (08:26→19:48)
[2024-10-13] MEDS: NSS (PRESERVATIVE FREE) 10 ML IV (08:26)
--- NOTE | 2024-10-13 08:37 | PTCARENOTE ---
patient report received, in rapid afib/ fluttter with amiodarone bolus infusing, patient hypotensive, gtts per work list. patient converted to sinus bradycardia then nsr at end of bolus, period hypotension post conversion. amiodarone gtt per
orders.LIMITED IV ACCESS. VAT RN paged to obtain additional site. glycemic unable to be resumed until site obtained due to incompatibilities. patient with movement arms, does not follow commands. rigid. increased nonverbal pain cues. fentanyl bolus
administered. ett to vent, moderate amount dark bloody oral secretions. increased rhonchi,crackles bilaterally. abdomen soft. +hernia. booker draining scant yellow urine. ogt in place, placement verified by air auscultation. restraints maintained for
patient safety as patient not following any commands.
[2024-10-13 08:44] LABS: Vancomycin Random 11.8 ug/ml
[2024-10-13 09:40] LABS: Glucose - Point of Care 127 mg/dl (70-99)
[2024-10-13 09:49] LABS: Glycohemoglobin (HgbA1c) 5.7 % (4.0-5.6)
[2024-10-13 10:13] LABS: B.E. -6.8 mmol/L; HCO3 18.5 mmol/L (21-28); O2 Saturation % 96.8 % (94-98); PCO2 35 mmHg (32-35); PO2 81 mmHg (83-108); pH 7.33 (7.35-7.45)
[2024-10-13 10:15] LABS: O2 Therapy 40%
[2024-10-13 10:24] LABS: Lactic Acid 3.4 mmol/L (0.7-2.0)
[2024-10-13 10:26] LABS: ALT (SGPT) 54 U/L (0-35); AST (SGOT) 105 U/L (14-36); Albumin 3.3 g/dl (3.5-5.0); Alkaline Phosphatase 56 U/L (38-126); Blood Urea Nitrogen 37 mg/dl (7-17); Calcium 8.1 mg/dl (8.4-10.2); Carbon Dioxide 19 mmol/L (22-30); Chloride 112 mmol/L (98-107); Estimated Creatinine Clearance 29 ml/min; Glucose 125 mg/dl (70-99); Magnesium 2.1 mg/dl (1.6-2.3); Phosphorus 3.2 mg/dl (2.5-4.5); Potassium 3.9 mmol/L (3.5-5.1); Sodium 140 mmol/L (135-145); Total Bilirubin 0.8 mg/dl (0.2-1.3); Total Protein 5.8 g/dl (6.3-8.2); eGFR 27.96
--- NOTE | 2024-10-13 11:02 | VATNOTE ---
PICC ordered for pt. Cephalic vein only suitable vessel visualized by this RN on the ultrasound. Vessel accessed and wire able to be threaded, but actual PICC catheter unable to be threaded. Only about 25 cm able to be inserted into cephalic vein.
Catheter seemed to be coiling in pt. Decision made to place midline in vessel instead. Midline placed w/ no issues. Will continue to monitor.
[2024-10-13 11:03] LABS: Glucose - Point of Care 111 mg/dl (70-99)
--- NOTE | 2024-10-13 11:36 | CM ---
CM met with TYLER/Ubaldo at nurse's station
Pt resides alone in a 1st floor apartment with 0STE
Pt is indep with her ADLs with use of a WW
She utilizes a WC while in the community, not able to self propel
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
Pt was to have initial appt at [facility] wound [facility] on Tuesday
Pt has a HHS, tub chair and grab bars
Pt is typically AxO 2-3, she manages her own financials
DIL fills her med box
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
No VN/SNF hx
Waiver application has been started with the [employer]
Application pending
PCP- Dr Lala Hamlin
Rx- [facility] [place]
Pt does not have POA or advanced directives
ICU on vent day #2
Her son/DIL local and help as needed
Her dtr/Jes is in [place] and flying in soon
Per DIL, pt has not taken gummies in a few years
Previously utilized them for sleep
Discharge Disposition- TBD
--- NOTE | 2024-10-13 11:46 | PTCARENOTE ---
VAT RN unable to place picc, midline inserted right arm. ela teacher updated, aware of need for central line placement. labs sent and resulted. during reassessment and care, patient became agitated, thrashing legs, rigid arms. eyes wide open but not
making eye contact or following commands. hypotensive:MAP 40's with pulse oximeter 80's during period agitation. medicated with fentanyl bolus per orders. levophed titration per work list. sputum sent. lungs with coarse breath sounds bilaterally.
family at bedside. updated.
[2024-10-13] MEDS: VANCOCIN 200 IV (12:09)
[2024-10-13] MEDS: OFIRMEV 100 IV (12:39)
--- NOTE | 2024-10-13 12:53 | CON.NEURO ---
Addendum entered and electronically signed by Roel Butt MD 10/14/24 08:05:
History of present illness:
Patient was in her usual state of health until being discovered unresponsive at which time EMS was contacted. The patient received CPR and was intubated. The patient was unable to provide her own medical history and the medical history is obtained
entirely from review of the patient's medical records.
Original Note:
Neuro Assessment/Plan
Assessment
Change in mental status following cardiac arrest secondary to multi lobar pneumonia producing septic shock
Based on the patient's unknown downtime and possible myoclonus, the prognosis may be significantly poor. The absence of a suppressive EEG pattern is a positive sign toward reasonable recovery
Best determination of recovery is at 72 hours after initial injury
Plan
Continue supportive care
Consider repeat EEG if the patient has loss of responsiveness entirely
No indication at this time patient would benefit from antiseizure medication
We will follow future neuroimaging results
Attempt to minimize sedation
Will follow peripherally
Consultation
Order
Date of Consultation: 10/13/24
Requesting Provider:
Reason for Consult:
Subjective/Objective
Subjective Data
Date of Service: October 13, 2024
Objective Data
Vital Signs
Temp Pulse Resp BP Pulse Ox
38.0 C H 68 24 138/74 96
10/13/24 11:54 10/13/24 12:20 10/13/24 12:20 10/13/24 03:45 10/13/24 12:10
Lab Results
10/13/24 04:51
10/13/24 10:01
PT 14.9 Sec (11.4-14.6) H 10/12/24 19:36
INR 1.14 10/12/24 19:36
APTT 30.8 Sec (23.4-35.0) 10/12/24 19:36
Sodium 140 mmol/L (135-145) 10/13/24 10:01
Potassium 3.9 mmol/L (3.5-5.1) 10/13/24 10:01
BUN 37 mg/dl (7-17) H 10/13/24 10:01
Glucose 125 mg/dl (70-99) H 10/13/24 10:01
Calcium 8.1 mg/dl (8.4-10.2) L 10/13/24 10:01
Phosphorus 3.2 mg/dl (2.5-4.5) 10/13/24 10:01
Ur Buprenorphine Negative (Negative) 10/12/24 20:05
Patient Allergies
No Allergy Information Available Allergy (Verified 10/12/24 19:30)
Review of Systems
-
Unable to obtain full review of systems at this time due to: Patient Intubation and Lethargy
History Source: Patient
All other systems: Reviewed and negative
Physical Exam
-
General: No Apparent Distress, Intubated and Appears Stated Age
Eyes: OU Absent Papilledema, Round OU and [place] Conjunctivae
HEENT: Anicteric and Moist Mucous Membranes
Neck: Full Range of Motion
Respiratory: No Dyspnea
Cardiac: No JVD
GI: Non-distended
Skin: Unremarkable
Extremities: No Clubbing, No Cyanosis and No Edema
Psych: Unable to Assess
Extended Neurological Exam
Mood & Affect: Unable to Assess
Attention Span & Concentration: Unresponsive to Verbal Stimuli and Unresponsive to Physical Stimuli; Negative Awake, Alert or Interactive
Memory: Unable to Assess
Involuntary Movement: Other (Spontaneous rare proximal myoclonic movement of bilateral shoulders)
Speech: Unable to Assess
Cranial Nerve II: Left Eye: Pupillary Reactivity Unremarkable, Pupillary Size Unremarkable and Unable to Assess Visual Pantoja
Cranial Nerve II: Right Eye: Pupillary Reactivity Unremarkable, Pupillary Size Unremarkable and Unable to Assess Visual Pantoja
Cranial Nerves III, IV, : Extraocular Movement: Absent Doll's Eyes and Unable to Assess (Ptosis)
Cranial Nerve V: Facial Sensation: Unable to Assess
Cranial Nerve VII: Facial Symmetry: Normal Facial Symmetry
Cranial Nerve VIII: Hearing: Unable to Assess
Cranial Nerves IX, X: Palate Movement: Unable to Assess
Cranial Nerve XI: Shoulder Shrug: Unable to Assess
Cranial Nerve XII: Tongue Protusion: Unable to Assess
Muscle Strength, Overall: Negative Spontaneously Moves
Muscle Bulk & Tone: Bulk Unremarkable and Tone Unremarkable
Pronator Drift: Unable to Assess
Deep Tendon Reflexes: Trace Throughout
Cold Sensation: Unable to Assess
Vibration Sensation: Unable to Assess
Touch Sensation: Negative Withdrawal to Pain
Coordination: Unable to Assess
Babinski Sign: Absent Bilaterally
Gait & Station: Unable to Assess
Data Reviewed
-
CT Head: Report Reviewed
Labs: Report Reviewed
Reviewed with: Nurse
Old Records: Summarized
Medications
-
Active Medications
Generic Name Dose Route Start Last Admin
Trade Name Freq PRN Reason Stop Dose Admin
Acetaminophen 650 mg 10/13/24 01:38
Acetaminophen (Oral Solution) 650 Mg/20.3 Ml Cup TUBE 11/10/24 01:37
Q4HPRN PRN
fever>100.3/mild pain
Acetaminophen 650 mg 10/13/24 18:00
Acetaminophen 325 Mg Tablet PO 10/14/24 00:01
Q6 NATALIE
Bisacodyl 10 mg 10/13/24 01:30
Bisacodyl 10 Mg Rectal Suppository RECTAL 11/10/24 01:29
DAILYPRN PRN
no BM within 72 hours
Dextrose 12.5 grams 10/13/24 01:38 10/13/24 06:48
Dextrose 50% (0.5 Grams/Ml) 50 Ml Syringe IV 11/10/24 01:37 12.5 grams
[id number] PRN Administration
Blood Glucose < 70
Fentanyl Citrate 50 mcg 10/13/24 01:30 10/13/24 11:22
Fentanyl (50 Mcg/Ml) 100 Mcg/2 Ml Ampul IV 10/27/24 01:29 50 mcg
[id number] PRN Administration
see protocol
Protocol
Heparin Sodium 5,000 units 10/13/24 08:00 10/13/24 08:26
Heparin 5,000 Units/Ml 1 Ml Vial SC 11/10/24 07:59 5,000 units
Q12 NATALIE Administration
Sodium Chloride 1,000 mls @ 100 mls/hr 10/13/24 00:13 10/13/24 08:58
Nss IV 1,000 mls
.Q10H NATALIE Administration
Vancomycin HCl 1 each/ Device 0 mls @ 0 mls/hr 10/13/24 01:17
IV
PER PROTOCOL NATALIE
Protocol
As Directed
Piperacillin Sod/Tazobactam Sod 3.375 gram in 50 mls @ 100 mls/hr 10/13/24 04:00 10/13/24 09:18
Zosyn IV 50 mls
Q6H NATALIE Administration
Fentanyl Citrate 1,000 mcg in 100 mls @ 0 mls/hr 10/13/24 01:30
Sublimaze IV
PER PROTOCOL NATALIE
Protocol
Per Protocol
Propofol 1,000,000 mcg in 100 mls @ 0 mls/hr 10/13/24 01:30
Diprivan IV
PER PROTOCOL NATALIE
Protocol
Per Protocol
Norepinephrine Bitartrate 4 mg in 250 mls @ 0 mls/hr 10/13/24 01:45
Levophed IV
PER PROTOCOL NATALIE
Protocol
Per Protocol
Insulin Human Regular 100 units in 100 mls @ 0 mls/hr 10/13/24 01:45 10/13/24 02:39
Novolin R Insulin Infusion IV 100 mls
PER PROTOCOL NATALIE Administration
Protocol
Per Protocol
Amiodarone HCl 900 mg/ 518 mls @ 0 mls/hr 10/13/24 06:15
Dextrose/Water IV
PER PROTOCOL NATALIE
Protocol
Per Protocol
Vasopressin 20 units in 100 mls @ 0 mls/hr 10/13/24 06:30 10/13/24 06:45
Pitressin IV 100 mls
PER PROTOCOL NATALIE Administration
Protocol
Per Protocol
Phenylephrine HCl 50 mg in 250 mls @ 0 mls/hr 10/13/24 06:30 10/13/24 09:53
Mohsen-Synephrine IV 250 mls
PER PROTOCOL NATALIE Administration
Protocol
Per Protocol
Vancomycin HCl 1 gram in 200 mls @ 200 mls/hr 10/13/24 12:00 10/13/24 12:09
Vancocin IV 10/13/24 12:59 200 mls
ONCE ONE Administration
Lactated Ringer's 1,000 mls @ 125 mls/hr 10/13/24 13:00
Lr IV
.Q8H NATALIE
Insulin Aspart 0 units 10/13/24 07:30 10/13/24 10:11
Insulin Aspart (100 Units/Ml) 3 Ml Flexpen SC 11/10/24 07:29 Not Given
AC NATALIE
Protocol
Pantoprazole Sodium 40 mg 10/13/24 08:00 10/13/24 08:26
Pantoprazole Sodium 40 Mg/10 Ml Vial IV 11/10/24 07:59 40 mg
DAILY NATALIE Administration
Polyethylene Glycol 17 grams 10/14/24 08:00
Polyethylene Glycol Powder 17 Grams Packet TUBE 11/11/24 07:59
DAILY NATALIE
Sodium Chloride 0 flush 10/12/24 23:00
Sodium Chloride 0.9% (Flush) Syringe IV 11/09/24 22:59
PER PROTOCOL NATALIE
Sodium Chloride 10 ml 10/13/24 08:00 10/13/24 08:26
Sodium Chloride 0.9% (Preservative Free) 10 Ml Vial IV 11/10/24 07:59 10 ml
DAILY NATALIE Administration
Home Medications
�Medication �Instructions �Recorded
Lactobacillus 1 cap PO DAILY Supplement 10/12/24
acidophilus-Bifidobac.animalis 2.5
billion cell capsule (Daily
Probiotic)
baclofen 10 mg tablet 10 mg PO QID Muscle Spasms 10/12/24
cephalexin 500 mg capsule 500 mg PO TID Infection 10/12/24
furosemide 20 mg tablet (Lasix) 20 mg PO PRN PRN swelling 10/12/24
gabapentin 600 mg tablet 600 mg PO TID Pain 10/12/24
metformin 850 mg tablet 850 mg PO TIDWMEAL Diabetes 10/12/24
omeprazole 20 mg tablet,delayed 20 mg PO DAILY Gastrointestinal 10/12/24
release Issue
pioglitazone 45 mg tablet 45 mg PO DAILY Diabetes 10/12/24
Past History
Past History
ED Past Medical History: GERD, Hypercholesterolemia, NIDDM and Other (Neuropathy)
ED Past Surgical History: Other
Social History
Tobacco: Other
Alcohol: Other
Drug: Other
Living: other
Employment: Other
Family History
Family History: Unable to obtain
[2024-10-13 13:06] LABS: Glucose - Point of Care 139 mg/dl (70-99)
[2024-10-13] MEDS: LR 1000 IV (13:08)
--- NOTE | 2024-10-13 13:26 | CON.CAR ---
Consultation
Consultation Request
Date/Time Consultation Requested: October 13, 2024
Date/Time Consultation Performed: October 13, 2024
Requesting Provider: Hospitalist
Performing Provider: Dr Santiago Mccurdy
Reason for Consultation: Out of hospital arrest
Medical History
-
Chief Complaint: Respiratory arrest
History of Present Illness:
79-year-old woman who is brought to the emergency department after being found down and unresponsive by her son. She was found to be agonal. EMS was called. CPR was performed and she was given epinephrine. It is noted that the AED advised
against shock. She was intubated.
Review of the medical record indicates from history obtained from son and [id number] indicates that she has not been in any respiratory distress or shortness of breath recently. There was some question of her possibly taking too many of her
medications and possibly taking THC Gummies or overdosing on her medications. Apparently there was a comment about her not wanting to live anymore although she had a good day yesterday.
Working diagnosis is acute hypoxemic respiratory failure with septic shock secondary to multilobar community-acquired pneumonia.
Additionally, she is newly diagnosed with atrial fibrillation and rapid ventricular rates on ECG obtained in the field which finds atrial fibrillation with a rapid ventricular rate at 143 bpm with right bundle branch block.
Presenting labs show:
Lactic acid is 7.1
magnesium of 0.8.
BUN and creatinine of 33 and 1.8 with potassium of 4.6
Troponin is 0.156 which subsequently increased to 1.4
Elevated transaminases with AST 170 and ALT 64
Hemoglobin and hematocrit 10 and 33 white blood cell count 14.8
First ER ECG demonstrates sinus tachycardia at [address] and T abnormalities with no prior ECG for comparison. There is no ST segment elevation
Chest x-ray obtained in the emergency department finds severe pneumonia at the right upper lobe, right lower lobe, left lower lobe as well as pneumonia in the left upper lobe.
Past medical history is not completely known but review of medical records show that there is a history of diabetes, dyslipidemia, neuropathy and gastroesophageal reflux disease.
Social History
Tobacco: Other (Unobtainable from patient, review of medical records indicates she is a non-smoker does not use alcohol or illicit drugs.)
Family History
Family History: Reviewed & Not Pertinent
Allergies / Home Medications
Allergy/AdvReac Type Severity Reaction Status Date / Time
No Allergy Information Allergy Verified 10/12/24 19:30
Available
�Medication �Instructions �Recorded �Confirmed �Type
Lactobacillus 1 cap PO DAILY Supplement 10/12/24 10/12/24 History
acidophilus-Bifidobac.animalis 2.5
billion cell capsule (Daily
Probiotic)
baclofen 10 mg tablet 10 mg PO QID Muscle Spasms 10/12/24 10/12/24 History
cephalexin 500 mg capsule 500 mg PO TID Infection 10/12/24 10/12/24 History
furosemide 20 mg tablet (Lasix) 20 mg PO PRN PRN swelling 10/12/24 10/12/24 History
gabapentin 600 mg tablet 600 mg PO TID Pain 10/12/24 10/12/24 History
metformin 850 mg tablet 850 mg PO TIDWMEAL Diabetes 10/12/24 10/12/24 History
omeprazole 20 mg tablet,delayed 20 mg PO DAILY Gastrointestinal 10/12/24 10/12/24 History
release Issue
pioglitazone 45 mg tablet 45 mg PO DAILY Diabetes 10/12/24 10/12/24 History
Review of Systems
-
Unable to obtain full review of systems at this time due to: Acuity and Patient Intubation
Physical Exam
Vital Signs
Temp Pulse Resp BP Pulse Ox
100.4 F H 68 24 138/74 96
10/13/24 11:54 10/13/24 12:20 10/13/24 12:20 10/13/24 03:45 10/13/24 12:10
Lab Results
Troponin I 1.410 ng/ml H* 10/13/24 04:51
Physical Exam
General: Intubated
HEENT: Normocephalic, Anicteric and Moist Mucous Membranes
Respiratory: Other (Coarse breath sounds anteriorly, she is supine and mechanically ventilated at present)
Cardiac: S1/S2 (No S3, no S4 there is a grade 1/6 apical holosystolic murmur, grade 1/6 basal systolic ejection murmur, no rub) and Regular Rhythm
Breast: Deferred by me
GI: Soft and Non Distended
Rectal: Deferred by Provider
Musculoskeletal: No Clubbing, No Cyanosis and Edema (There is +2-3 pitting lower extremity edema)
Skin: Warm and Dry
Neuro: Sedated
Impression / Plan
-
Assessment:
Respiratory arrest
Possible cardiac arrest
Septic shock
Multi lobar pneumonia
Elevated troponin
Paroxysmal atrial fibrillation
Type 2 diabetes
Recommendation:
She was found down and in what seems to be described primarily as respiratory arrest. She also described that she received CPR and 1 dose of epinephrine and subsequently AED recommended no shock. This would suggest cardiac arrest as well. The
first available ECG from the field finds atrial fibrillation with a rapid ventricular rate of 140 bpm, right bundle branch block. Subsequent EKG finds sinus tachycardia, no bundle branch block and no ST segment elevations. Additionally she
remained hypotensive, febrile, chest x-ray findings of multi lobar pneumonia and overall presents with a clinical picture of septic shock.
There is slight troponin elevation with increase in troponin from 0.156 at initial presentation to 1.4 this morning. This likely represents non-[place] troponin elevation with elevation secondary to acute illness with cardio respiratory as well as
septic shock.
Supportive care for septic shock
Currently on multiple pressors to maintain hemodynamic stability, wean as blood pressure tolerates
While she did demonstrate paroxysmal atrial fibrillation
She is now in sinus rhythm on intravenous amiodarone
However while the nurse was turning her she became bradycardic to the 30s briefly with transient PEA
Discussed with ICU nursing, stop amiodarone
She may have paroxysms of atrial fibrillation but as long as this does not result in significant hypotension would continue to hold amiodarone today
While there is troponin elevation I do not believe this represents acute coronary syndrome or [place] related troponin elevation
I would not start heparin for any suspected acute coronary syndrome
Eventually there can be consideration for anticoagulation primarily based on atrial fibrillation related thromboembolic risk reduction
Check echocardiogram
Management of multi lobar pneumonia as per primary service and pulmonary critical care
CCT 45 min
Data Reviewed
-
EKG: Tracing Personally Visualized and interpreted
Radiology: Image Personally Visualized and interpreted
Labs: Labs Reviewed by me
Old Records: Reviewed
Critical Care Time (in minutes): 45
[2024-10-13 13:36] LABS: Hematocrit 27.2 % (37.0-47.0); Mean Corp Hgb Conc. 33.1 g/dL (33.0-37.0); Mean Corpuscular Hgb 29.6 pg (27.0-31.0); Mean Corpuscular Volume 89.5 fL (81.0-99.0); Mean Platelet Volume 10.2 fL (7.4-10.4); Platelet Count 255 10^3/uL (130-400); Red Blood Cell Count 3.04 10^6/uL (4.20-5.40); Red Cell Dist. Width 14.3 % (11.5-14.5); White Blood Cell Count 13.1 10^3/uL (4.8-10.8)
--- NOTE | 2024-10-13 13:38 | W.RAPID.EEG ---
Rapid EEG
-
Results:
Point of Care EEG Procedure Note
Clinical Correlation / Impressions:
� The diffuse slowing in this recording represents a non-specific condition indicating non-focal cortical dysfunction or a subcortical source as seen for instance in patients with diffuse encephalopathy.
Patient name: AZRA CHRISTENSEN
Medical ID: [id number]
Date of : 1945
Age: 79
Recording 1 Duration: 2024-10-13 02:18:34 - 2024-10-13 11:59:32
Recording Total Time: 09:40:58 (581 minutes)
Ordering Physician: Trinity JUSTIN
Recording Technique: This EEG was obtained using a 10 lead, 8 channel circumferential rapid EEG with no parasagittal coverage. Performed with Omicia Status Epilepticus Monitor, ICD-10 [id number]
Clinical History: AZRA CHRISTENSEN is a 79 year old Cardiac Arrest patient undergoing EEG to screen for non-convulsive status epilepticus.
Primary Indication: Cardiac Arrest
Location: ICU/MICU
Findings:
Report prepared by: Husam Butt
Report generated on: October 13, 2024 1:35 PM [facility]
[2024-10-13 13:47] LABS: APTT 32.5 Sec (23.4-35.0)
[2024-10-13 13:51] LABS: Blood Urea Nitrogen 37 mg/dl (7-17); Calcium 7.9 mg/dl (8.4-10.2); Carbon Dioxide 16 mmol/L (22-30); Chloride 113 mmol/L (98-107); Estimated Creatinine Clearance 29 ml/min; Glucose 134 mg/dl (70-99); Lactic Acid 3.7 mmol/L (0.7-2.0); Potassium 4.1 mmol/L (3.5-5.1); Sodium 136 mmol/L (135-145); eGFR 27.96
--- NOTE | 2024-10-13 13:58 | W.RAPID.EEG ---
Rapid EEG
-
Procedure Date: 10/13/24
Results:
Point of Care EEG Procedure Note
Clinical Correlation / Impressions:
� The diffuse slowing in this recording represents a non-specific condition indicating non-focal cortical dysfunction or a subcortical source as seen for instance in patients with diffuse encephalopathy.
Patient name: AZRA CHRISTENSEN
Medical ID: [id number]
Date of : 1945
Age: 79
Recording 1 Duration: 2024-10-13 02:18:34 - 2024-10-13 11:59:32
Recording Total Time: 09:40:58 (581 minutes)
Ordering Physician: Trinity JUSTIN
Recording Technique: This EEG was obtained using a 10 lead, 8 channel circumferential rapid EEG with no parasagittal coverage. Performed with [place], MyT[employer] Status Epilepticus Monitor, ICD-10 [id number]
Clinical History: AZRA CHRISTENSEN is a 79 year old Cardiac Arrest patient undergoing EEG to screen for non-convulsive status epilepticus.
Primary Indication: Cardiac Arrest
Location: ICU/MICU
Findings:
Report prepared by: Husam Butt
Report generated on: October 13, 2024 1:35 PM [facility]
[2024-10-13 14:20] LABS: Triglycerides 74 mg/dl (10-149)
[2024-10-13 14:54] LABS: Glucose - Point of Care 99 mg/dl (70-99)
--- NOTE | 2024-10-13 15:09 | PTCARENOTE ---
right IJ triple line placed by IRAD at bedside. cxr taken. patient turned to place cooling blanket on bed, with turning patient heart rate 30, short period pulselessness, responded to three chest compressions and regained pulse and blood pressure.
amiodarone on hold. armored car driver and roll changer updated. heparin order pending per hospitalist after he consults with roll changer and cards. glycemic per worklist. insulin gtt off at this time. neurologist at bedside. eeg continues.
[2024-10-13 16:04] LABS: Glucose - Point of Care 87 mg/dl (70-99)
[2024-10-13] MEDS: SUBLIMAZE 100 IV (16:46)
--- NOTE | 2024-10-13 16:51 | W.PN.UPDATE ---
Update Note
Progress Note Update
Discussion held with the patient's children, including the son, Ubaldo Landry ([id number]), and daughter Claudette. According to them, the patient did 'not want to live anymore' and they apparently found a note saying her goodbyes. Given
that the patient is currently intubated, they do not want to withdraw care at this time but they do want her to be DNR. If she were to deteriorate, they want her to be made comfortable with no aggressive or heroic measures. If patient survives the
night then they will come in tomorrow morning and we will discuss at that time what the best course of action is in terms of continuing life support vs terminal extubation with transition to comfort care measures.
Emotional support was provided to the family. Code status changed in [facility]. Primary hospitalist made aware of above discussion.
--- NOTE | 2024-10-13 16:57 | PTCARENOTE ---
goals of care discussions with family. patient PIP 50's. biting on ETT, does not follow commands. moving arms and legs. becomes hypotensive with these episodes. fentanyl bolus given without effect. levophed resumed. per Diver Assistant, initiated
fentanyl infusion.
[2024-10-13 17:00] LABS: Glucose - Point of Care 86 mg/dl (70-99)
[2024-10-13] MEDS: SOLU-CORTEF 50 MG IV (17:14)
[2024-10-13] MEDS: TYLENOL 650 MG PO (17:14)
[2024-10-13] MEDS: SODIUM BICARBONATE 1150 MEQ IV (17:24)
[2024-10-13] MEDS: DIPRIVAN 100 IV ×2 (17:34→21:28)
--- NOTE | 2024-10-13 17:40 | PTCARENOTE ---
patient continued to bite ett, restless, desating to the 80's in spite of fent bolus and gtt. propofol initiated. movements appear purposeful at times. dose not follow commands. check clerk updated by giovani text
[2024-10-13 18:06] LABS: Glucose - Point of Care 136 mg/dl (70-99)
[2024-10-13 18:47] LABS: Glucose - Point of Care 148 mg/dl (70-99)
[2024-10-13 21:11] LABS: Glucose - Point of Care 186 mg/dl (70-99)
[2024-10-13 22:16] LABS: Glucose - Point of Care 185 mg/dl (70-99)
[2024-10-13 23:04] LABS: Glucose - Point of Care 210 mg/dl (70-99)
[2024-10-13 23:20] LABS: Lactic Acid 2.6 mmol/L (0.7-2.0)
[2024-10-14 00:11] LABS: Glucose - Point of Care 204 mg/dl (70-99)
[2024-10-14] MEDS: SOLU-CORTEF 50 MG IV ×3 (00:11→11:41)
[2024-10-14] MEDS: TYLENOL PO (00:11)
[2024-10-14] MEDS: TYLENOL ORAL SOLUTION 650 MG PO (00:11)
[2024-10-14 01:09] LABS: Glucose - Point of Care 210 mg/dl (70-99)
--- NOTE | 2024-10-14 01:31 | PTCARENOTE ---
Pt received at 19:00, intubated and sedated on propofol and fentanyl. +protective reflexes. Cerebell remains on--seizure burden = 0%. SR to sinus marija, weak but palpable pulses. Vasopressin now off, constance titrated as ordered. Hypothermic, 93.2--marcellus
hugger applied with goal temp 97. 6.5 ETT, 24 at the lip. AC 24/400/40%/+5. Suctioned for minimal thick brown/blood tinged secretions via ETT. Coarse/crackles t/o. OGT to LIWS, small amount of brown output. Mcgowan in place, 35-40ml/hr. Insulin gtt
restarted and titrated per glycemic protocol.
[2024-10-14 02:05] LABS: Glucose - Point of Care 194 mg/dl (70-99)
[2024-10-14] MEDS: DIPRIVAN 100 IV (02:05)
[2024-10-14 03:06] LABS: Glucose - Point of Care 161 mg/dl (70-99)
[2024-10-14] MEDS: NOVOLIN R INSULIN INFUSION 100 IV (03:58)
[2024-10-14] MEDS: ZOSYN 50 IV ×2 (03:58→11:41)
[2024-10-14 04:00] LABS: HCO3 21.1 mmol/L (21-28); O2 Saturation % 99.5 % (94-98); PCO2 29 mmHg (32-35); PO2 152 mmHg (83-108); pH 7.47 (7.35-7.45)
[2024-10-14 04:06] LABS: Glucose - Point of Care 143 mg/dl (70-99)
[2024-10-14 04:26] LABS: Lactic Acid 2.8 mmol/L (0.7-2.0)
[2024-10-14 04:45] LABS: % Basophils 0.1 % (0-2); % Immature Granulocytes 0.5 % (0-0.5); % Lymphocytes 5.8 % (20.5-51.1); % Monocytes 3.6 % (1.7-9.3); Absolute Immature Granulocytes 0.1 10^3/uL (0-0.05); Absolute Lymphocytes 0.7 10^3/uL (1.2-3.4); Absolute Monocytes 0.4 10^3/uL (0.1-0.6); Hematocrit 25.9 % (37.0-47.0); Hemoglobin 8.8 g/dL (12.0-16.0); Mean Corpuscular Hgb 29.5 pg (27.0-31.0); Mean Corpuscular Volume 86.9 fL (81.0-99.0); Mean Platelet Volume 10.9 fL (7.4-10.4); Nucleated Red Blood Cells % 0 %; Platelet Count 197 10^3/uL (130-400); Red Blood Cell Count 2.98 10^6/uL (4.20-5.40); Red Cell Dist. Width 14.3 % (11.5-14.5); White Blood Cell Count 12.2 10^3/uL (4.8-10.8)
[2024-10-14 05:00] LABS: Vancomycin Random 14.2 ug/ml
[2024-10-14 05:06] LABS: ALT (SGPT) 585 U/L (0-35); AST (SGOT) 1153 U/L (14-36); Alkaline Phosphatase 55 U/L (38-126); Blood Urea Nitrogen 38 mg/dl (7-17); Carbon Dioxide 19 mmol/L (22-30); Chloride 109 mmol/L (98-107); Estimated Creatinine Clearance 27 ml/min; Glucose 131 mg/dl (70-99); Magnesium 1.8 mg/dl (1.6-2.3); Phosphorus 4.1 mg/dl (2.5-4.5); Potassium 3.6 mmol/L (3.5-5.1); Sodium 138 mmol/L (135-145); Total Bilirubin 0.6 mg/dl (0.2-1.3); Total Protein 5.3 g/dl (6.3-8.2)
[2024-10-14 05:27] LABS: Glucose - Point of Care 104 mg/dl (70-99)
[2024-10-14 06:00] VITALS: BMI 43.2
--- NOTE | 2024-10-14 06:09 | PTCARENOTE ---
Propofol titrated as ordered, Pt RASS = -4 at 02:30. Weak but present cough/gag/corneals. Pupils 2mm and sluggish.
[2024-10-14 06:32] LABS: Glucose - Point of Care 103 mg/dl (70-99)
--- NOTE | 2024-10-14 07:15 | PTCARENOTE ---
Pt received at 07:15 intubated and sedated on propofol and fentanyl. RASS -5. Prop turned off. SR on tele, weak but palpable pulses. Vasopressin off since 11 pm, constance titrated as ordered. Pt had been hypothermic for previous shift, now marcellus hugger
applied with goal temp 97. See flowsheet. Pt has 6.5 ETT, 24 at the lip. AC 24/400/40%/+5. Suctioned for mod thick brown/blood tinged secretions via ETT. Coarse/crackles t/o. OGT to LIWS, green liquid in canister. Mcgowan in place for crit I+Os, clear
yellow urine draining. see I+Os. Insulin gtt titrated per glycemic protocol.
--- NOTE | 2024-10-14 07:31 | W.PN.HOSP.TC ---
Today's Communication/Plan
-
GOC discussion ongoing, code status changed to DNR DNI, per family, if she were to deteriorate, they want her to be made comfortable with no aggressive or heroic measures.
Discussing continuing life support vs terminal extubation with transition to comfort care measures.
Assessment / Plan
Assessment / Plan
A/P:
# [id number] cardiac arrest
# Hypomagnesemia
Suspect respiratory driven event 2/2 CAP v. aspiration; cannot rule out torsades with recent mag level 0.8
Unclear amount of downtime however no obvious signs of anoxic brain injury initially
Initial concern for polypharmacy versus extra doses of medicines however tox screen negative
Imaging on arrival showed findings suggestive of moderate multilobar PNA
No known history of heart disease, lung disease, family history of early cardiac
Order echocardiogram to assess LVEF and valves, monitor telemetry
Consideration of cooling protocol per ICU, defer to Profile Shaper Operator
Replete magnesium (>2) and potassium (>4)
Follow-up EEG
# VDRF
# Acute hypoxemic respiratory failure
# Septic shock secondary to CAP
# Prerenal ALONSO with metabolic acidosis
# Shocked liver
Suspect initial pneumonia as catalyst for sequence of events that brought her here
Cannot completely rule out aspiration event though no history of dysphagia
Intubated in the field and started on MV here
Started on IV vancomycin and Zosyn empirically after cultures in the ED
s/p 3 vasopressors, now only on Mohsen
Cont bicarb drip
GOC discussion ongoing, code status changed to DNR DNI, per family, if she were to deteriorate, they want her to be made comfortable with no aggressive or heroic measures.
Discussing continuing life support vs terminal extubation with transition to comfort care measures.
# New onset AF with RVR, converted to NSR
[id number] score >3, likely nonvalvular; indication for AC such as DOAC
s/p amiodarone drip
s/p heparin drip
Cardiology on board
Telemetry
# Elevated troponin
Suspect an NIMI with cardiac arrest; family denies any previous cardiac history
Troponin has up trended with most recent value at 2.9
no ischemic findings on ECG
s/p IV heparin drip
GOC Discussion ongoing
Echo ordered but may not be relevant if pursuing comfort measures
# NIDDM with neuropathy
Home regimen includes metformin 3 times daily (?) and pioglitazone
Also takes gabapentin 3 times daily for associated peripheral neuropathy
Currently on glycemic protocol
# GERD
Home regimen includes omeprazole
No history of Guerrero's esophagus or erosive disease
IV protonic for gastric ppx
# Dyslipidemia
No known ASCVD history, family denies coronary stents
Home regimen does not include statin therapy
Diet: N.p.o.
DVT prophylaxis: SQ heparin
CODE STATUS: Now DNR DNI
DW RN
CC time 40 min
Anticipated Discharge: 24 - 48 hours
Subjective/Interval History
-
Date of Service: October 14, 2024
Objective Data
-
Labs:
Laboratory Results
10/14/24
03:47
WBC 12.2 H
Hgb 8.8 L
Hct 25.9 L
Plt Count 197 D
HCO3 21.1
Sodium 138
Potassium 3.6
Chloride 109 H
Carbon Dioxide 19 L
BUN 38 H
Creatinine 1.9 H
Glucose 131 H
Calcium 8.0 L
Total Bilirubin 0.6
AST 1153 H*
ALT 585 H*
Alkaline Phosphatase 55
Vital Signs:
Vital Signs
Temp Pulse Resp BP Pulse Ox
36.2 C 54 24 138/74 100
10/14/24 07:00 10/14/24 06:00 10/14/24 06:00 10/13/24 03:45 10/14/24 06:00
I&O
10/13/24 10/14/24 10/15/24
06:59 06:59 06:59
Intake Total 347.8 / 1331.8 5124.3 / 5124.3
Output Total 375 / 375 785 / 785
Balance -27.2 / 956.8 4339.3 / 4339.3
Review of Systems
-
Unable to obtain full review of systems at this time due to: Acuity and Patient Intubation
Physical Exam
-
General: Well Developed, Respiratory Distress, Intubated and Morbidly Obese; Negative Conversant
HEENT: Normocephalic, Atraumatic, Moist Mucous Membranes and Anicteric
Respiratory: Rhonchi and Non Labored Respirations; Negative Wheezes, Rales or Accessory Resp Muscle Use
Cardiac: Regular Rhythm and S1/S2; Negative Murmur, Rub, JVD, Gallop or Tachycardic
GI: Soft, Nontender, Nondistended and Normal Bowel Sounds
Musculoskeletal: No Clubbing, No Cyanosis and No Edema
Skin: Warm and Dry; Negative Rash or Jaundice
Neuro: Sedated and Nonfocal/Grossly Intact
Data Reviewed
-
Diagnostic Radiology: Image personally visualized and interpreted and Report Reviewed by me
Labs: Labs Reviewed by me
[2024-10-14 07:53] LABS: Glucose - Point of Care 99 mg/dl (70-99)
--- NOTE | 2024-10-14 08:30 | W.PN.INTV ---
Today's Communication / Plan
Recommendations
Transition to comfort care with terminal extubation
Once patient extubated then turned off Mohsen-Synephrine
Stop all blood draws and fingersticks and DC telemetry
Start medications tailored for treatment of dyspnea, anxiety and increase secretions
Emotional support provided; vector control specialist services offered
Primary hospitalist made aware of transitioning to comfort care
Once patient is terminally extubated, Air Purifier Servicer services will sign off but will remain available if any further assistance is needed especially as I have developed a rapport with the family.
Assessment
-
Assessment: 79-year-old female with a past medical history of JAVIER, paroxysmal A-fib, DM type II, fibromyalgia, history of UTI, anemia, depression, anxiety, and chronic back/leg pain who presented with [id number] cardiac arrest. History
obtained from medical records and family members. Patient's son, Frantz and [id number], Bonnie in addition to patient's daughter, Claudette, all present at bedside and assisted with the history. Patient was found unresponsive at around
530�6 PM on 10/12/2024. She was last known normal the morning prior although she says she was not feeling well at that time. The patient does live alone. When the patient was found unresponsive, 911 was called, and CPR was started 10 minutes after
the 911 call. No shockable rhythm, 1 mg of epinephrine was given in addition to lidocaine. She also was given Narcan with reportedly some improvement in her reactions. She was intubated in the field and given a total of 10 mg Versed by EMS. She
reportedly was given Keflex recently for right lower extremity cellulitis which is an ongoing issue for her with 2 prior courses of antibiotics without improvement. Initially she was afebrile to 97.3 �F, pulse rate 90, respiratory rate of 17, BP
73/39 and saturating 97%. Labs showed leukocytosis to 14.8, Hb 10, hypercapnia with [id number], pH 7.2, serum bicarbonate level 19, creatinine 1.8, glucose 322, lactate 7.1, troponin 0.156, urine drug screen negative, alcohol level negative and
COVID-19 antigen negative. Blood cultures were collected in addition to a urine culture. CT head, chest, abdomen, pelvis were all performed showing moderate multifocal pneumonia and no acute intracranial abnormality. Found to be in rapid A-fib
and was given Cardizem, and also 1 L NS 0.9%, Vanco and Zosyn. Developed hypotension requiring Levophed. She was admitted to the ICU and pay station attendant services consulted for additional management/recommendations.
Chronic conditions CHIEF LIFESTYLE OFFICER: History of JAVIER, paroxysmal A-fib, DM type II, fibromyalgia, hayfever, pleurisy, history of UTI, anemia, eczema, depression, anxiety, chronic back/leg pain
Impression:
#Laf-aq-ipkafguc cardiac arrest
#Acute respiratory failure with hypoxia + hypercapnia now on mechanical ventilation (intubated in the field via EMS on 10/12/2024)
#Multifocal pneumonia likely due to aspiration during cardiac arrest
#Atrial fibrillation with RVR requiring Cardizem drip and now on amiodarone drip and in NSR as of this morning (she carries a history of paroxysmal A-fib)
#Leukocytosis
#Anemia
#ALONSO
#Lactic acidosis
#Transaminitis
#Elevated troponin
#Unresponsiveness with suspected hypoxic-ischemic encephalopathy
#History of recurrent right lower extremity cellulitis
#GERD
#Morbid obesity
#DM type II
Plan:
- Patient was found unresponsive without a pulse and pupils pinpoint. When EMS arrived, CPR/ACLS started and she reportedly regained ROSC rather quickly although this was approximately 10 minutes after she was found unresponsive
- Family also found a letter that the patient wrote essentially stating that she did not want to continue living anymore and that she was ending her life
- The family says that the patient would not want to be living on machines and life support and they have agreed to transition to comfort care
- Initial CT head did not show any acute intracranial abnormality however repeat CT head this morning shows mild hypoxic�ischemic encephalopathy with mild loss of normal maza�white matter differentiation throughout the cerebral hemispheres
- Neurology consulted as well as cardiology, and recommendations greatly appreciated
- Family understands that she has made mild improvements today based on her neurological status with questionable following commands (wiggled her left foot when I ask her to wiggle her 'feet' however she is not give me any direct eye contact and
given her CT head findings with mild hypoxic�ischemic encephalopathy, the family says that she will be even more unhappy and miserable than she was previous to this cardiac arrest, and she would not want to be on a ventilator even for another
minute. While I was in the room evaluating her this morning, the patient was also biting the endotracheal tube, and this also made the family even more adamant about removing the endotracheal tube and transitioning to comfort care as they believe
that the patient does not want to be restrained with tubes in her throat and her body.
- Stop all medications unless tailored for comfort
- Stop blood draws, POCT and DC telemetry
- I will start medications for dyspnea, anxiety and increased secretions
- I answered all the family's questions
- Library Science Professor services offered
- Primary hospitalist made aware of us transitioning to comfort care measures with terminal extubation
- Once patient is extubated, then instructed the RN to then turn off the Mohsen-Synephrine
- Believe the patient will pass away rather quickly once she is extubated and pressors have been stopped
Code status: DNR/DNI
Once patient is terminally extubated, Air Purifier Servicer services will sign off but will remain available if any further assistance is needed especially as I have developed a rapport with the family.
Total time spent today was 42 minutes for this encounter. Time includes reviewing laboratory test/imaging results, reviewing pertinent medical records, obtaining and reviewing medical history, performing an appropriate exam, ordering medications,
tests and procedures. Time also includes documentation of this encounter, coordinating patient care and communicating with other healthcare professionals. Total time does not include separately billed tests performed on this date of service.
Data:
CTA chest/abdomen/pelvis with/without contrast 10/12/2024:
Findings suggesting moderate multilobar pneumonia.
Bowel containing and nonbowel containing ventral hernias. No evidence of incarceration or strangulation. No evidence of obstruction.
Diverticulosis.
Mild volume overload or third spacing.
Mild cardiomegaly
Exophytic cystic left thyroid nodule best evaluated by a nonurgent dedicated thyroid ultrasound.
Subjective Dataa
Subjective Data
Date of Service:
Date of Service: October 14, 2024
Chief Complaint: Air Purifier Servicer Follow Up
Subjective:
Patient seen this morning. She is now opening her eyes however not following all commands and still has exquisite weakness. Family members, Frantz, Bonnie and Claudette all at bedside. They are interested in transitioning to comfort care
despite her minimal improvements in her neurological status today. CT head this morning shows mild hypoxic�ischemic encephalopathy. Patient was on sedation overnight and has been off since this morning.
Review of Systems
General: Other (Unobtainable due to altered mental status)
Objective Data
Data Reviewed
Vital Signs / I&O / Oxygen:
Vital Signs
Temp Pulse Resp BP Pulse Ox
97.7 F 60 24 104/53 99
10/14/24 08:00 10/14/24 09:30 10/14/24 09:30 10/14/24 09:06 10/14/24 09:30
Intake and Output
10/13/24 10/14/24 10/15/24
06:59 06:59 06:59
Intake Total 347.8 / 1331.8 5124.3 / 5231.3 403.2 / 403.2
Output Total 375 / 375 785 / 855 205 / 205
Balance -27.2 / 956.8 4339.3 / 4376.3 198.2 / 198.2
SaO2 [A/C] 100
SaO2 99
Physical Exam
General: Respiratory Distress (negative), Chills (negative) and Sweats (negative)
HEENT: Normocephalic, Other (ETT in place) and Other (Thick neck)
Cardiovascular: Rub (negative), Peripheral Edema (+2 lower extremity pitting edema bilaterally) and Other (Normal rate)
Respiratory: Wheeze (negative), Crackles (Bilateral), Rhonchi (negative), Non-Labored Respirations and ET Tube (Mechanical breath sounds heard bilaterally)
GI: Soft, Distended (Abdominal obesity), Non Tender and Normal Bowel Sounds
Neurology: Tremors (negative), Other (Pupils are equal and sluggish, at 3 mm bilaterally, corneals are intact, gag reflex intact, she is apneic however when placed onto pressure support trial) and Other (Questionably following simple commands, as
she wiggled her left foot when I asked her to wiggle her feet, although unable to give me a thumbs up and unable to give me any direct eye contact)
Skin: Warm, Dry, Cyanosis (negative) and Rash (Right lower extremity erythema without purulence)
Labs/Micro/Reports
Lab Data
10/14/24 03:47
10/14/24 03:47
Laboratory Results
10/13/24 10/14/24
13:23 03:47
APTT 32.5
pH 7.47 H
pCO2 29 L
pO2 152 H
HCO3 21.1
O2 Delivery Level
Microbiology
10/13/24 10:01 Nose MRSA Screen - Final
No Methicillin Resistant Staphylococcus aureus isolated.
10/13/24 11:13 Endotracheal Gram Stain - Preliminary
10/12/24 20:00 Blood/Venous Blood Culture - Preliminary
No Growth in 24 hours- Final report to follow
10/12/24 20:00 Blood/Venous Blood Culture - Preliminary
No Growth in 24 hours- Final report to follow
10/13/24 10:01 Nose Nasal Screen MRSA (PCR) - Final
10/13/24 04:51 Urine Legionella Urinary Antigen - Final
Negative for Legionella pneumophila Serogroup 1 antigen.
A negative result does not rule out the possiblity of
Legionella infection due to other serogroups or species of
Legionella. Clinical correlation is recommended.
10/13/24 04:51 Urine Streptococcus pneumoniae Antigen (M - Final
Negative for Streptococcus pneumoniae antigen.
A negative result does not exclude infection with
Streptococcus pneumoniae. Clinical correlation is
recommended.
10/13/24 04:51 Nasal Swab Influenza Types A & B (OLIVIA) - Final
Negative for Influenza A & B, NAAT
Negative results must be combined with clinical observations
and patient history.
Nucleic Acid Amplification test (NAAT)performed on the
[employer] platform.
--- NOTE | 2024-10-14 09:01 | W.PN.NEURO.1 ---
Today's Communication / Plan
-
Continue supportive care
Consider repeat EEG if the patient has loss of responsiveness entirely
No indication at this time patient would benefit from antiseizure medication
Attempt to minimize sedation
Neuro Assessment/Plan
Assessment
Change in mental status following cardiac arrest secondary to multi lobar pneumonia producing septic shock
Based on the patient's unknown downtime and possible myoclonus, the prognosis may be significantly poor. The absence of a suppressive EEG pattern is a positive sign toward reasonable recovery
Best determination of recovery is at 72 hours after initial injury
Plan
Continue supportive care
Consider repeat EEG if the patient has loss of responsiveness entirely
No indication at this time patient would benefit from antiseizure medication
Attempt to minimize sedation
Will follow peripherally
Subjective/Objective
Subjective Data
Date of Service: October 14, 2024
Objective Data
Vital Signs
Temp Pulse Resp BP Pulse Ox
36.2 C 54 24 138/74 100
10/14/24 07:00 10/14/24 07:00 10/14/24 07:00 10/13/24 03:45 10/14/24 08:07
Lab Results
10/14/24 03:47
10/14/24 03:47
PT 14.9 Sec (11.4-14.6) H 10/12/24 19:36
INR 1.14 10/12/24 19:36
APTT 32.5 Sec (23.4-35.0) 10/13/24 13:23
Sodium 138 mmol/L (135-145) 10/14/24 03:47
Potassium 3.6 mmol/L (3.5-5.1) 10/14/24 03:47
BUN 38 mg/dl (7-17) H 10/14/24 03:47
Glucose 131 mg/dl (70-99) H 10/14/24 03:47
Calcium 8.0 mg/dl (8.4-10.2) L 10/14/24 03:47
Phosphorus 4.1 mg/dl (2.5-4.5) 10/14/24 03:47
Ur Buprenorphine Negative (Negative) 10/12/24 20:05
Patient Allergies
No Allergy Information Available Allergy (Verified 10/12/24 19:30)
Data Reviewed
-
Labs: Report Reviewed
Reviewed with: Physician
Old Records: Summarized
Past History
Past History
ED Past Medical History: GERD, Hypercholesterolemia, NIDDM and Other (Neuropathy)
ED Past Surgical History: Other
Social History
Tobacco: Other
Alcohol: Other
Drug: Other
Living: other
Employment: Other
Family History
Family History: Unable to obtain
Medications
-
Medications:
Generic Name Dose Route Start Last Admin
Trade Name Freq PRN Reason Stop Dose Admin
Acetaminophen 650 mg 10/13/24 01:38 10/13/24 07:00
Acetaminophen (Oral Solution) 650 Mg/20.3 Ml Cup TUBE 11/10/24 01:37 650 mg
Q4HPRN PRN Administration
fever>100.3/mild pain
Bisacodyl 10 mg 10/13/24 01:30
Bisacodyl 10 Mg Rectal Suppository RECTAL 11/10/24 01:29
DAILYPRN PRN
no BM within 72 hours
Dextrose 12.5 grams 10/13/24 01:38 10/13/24 06:48
Dextrose 50% (0.5 Grams/Ml) 50 Ml Syringe IV 11/10/24 01:37 12.5 grams
[id number] PRN Administration
Blood Glucose < 70
Fentanyl Citrate 50 mcg 10/13/24 01:30 10/13/24 17:04
Fentanyl (50 Mcg/Ml) 100 Mcg/2 Ml Ampul IV 10/27/24 01:29 50 mcg
[id number] PRN Administration
see protocol
Protocol
Heparin Sodium 5,000 units 10/13/24 20:00 10/13/24 19:48
Heparin 5,000 Units/Ml 1 Ml Vial SC 11/10/24 19:59 5,000 units
Q12 NATALIE Administration
Hydrocortisone Sodium Succinate 50 mg 10/13/24 18:00 10/14/24 06:29
Hydrocortisone Sodium Succinate 100 Mg/2 Ml Vial IV 11/10/24 17:59 50 mg
Q6 NATALIE Administration
Vancomycin HCl 1 each/ Device 0 mls @ 0 mls/hr 10/13/24 01:17
IV
PER PROTOCOL NATALIE
Protocol
As Directed
Piperacillin Sod/Tazobactam Sod 3.375 gram in 50 mls @ 100 mls/hr 10/13/24 04:00 10/14/24 03:58
Zosyn IV 50 mls
Q6H NATALIE Administration
Fentanyl Citrate 1,000 mcg in 100 mls @ 0 mls/hr 10/13/24 01:30 10/13/24 16:46
Sublimaze IV 100 mls
PER PROTOCOL NATALIE Administration
Protocol
Per Protocol
Norepinephrine Bitartrate 4 mg in 250 mls @ 0 mls/hr 10/13/24 01:45 10/13/24 07:30
Levophed IV 250 mls
PER PROTOCOL NATALIE Administration
Protocol
Per Protocol
Insulin Human Regular 100 units in 100 mls @ 0 mls/hr 10/13/24 01:45 10/14/24 03:58
Novolin R Insulin Infusion IV 100 mls
PER PROTOCOL NATALIE Administration
Protocol
Per Protocol
Phenylephrine HCl 50 mg in 250 mls @ 0 mls/hr 10/13/24 06:30 10/13/24 17:24
Mohsen-Synephrine IV 250 mls
PER PROTOCOL NATALIE Administration
Protocol
Per Protocol
Sodium Bicarbonate 150 meq/ 1,150 mls @ 75 mls/hr 10/13/24 17:00 10/13/24 17:24
Dextrose IV 1,150 mls
.[id number] NATALIE Administration
Propofol 1,000,000 mcg in 100 mls @ 0 mls/hr 10/13/24 18:00 10/14/24 02:05
Diprivan IV 100 mls
PER PROTOCOL NATALIE Administration
Protocol
Per Protocol
Insulin Aspart 0 units 10/13/24 07:30 10/14/24 08:01
Insulin Aspart (100 Units/Ml) 3 Ml Flexpen SC 11/10/24 07:29 Not Given
AC NATALIE
Protocol
Pantoprazole Sodium 40 mg 10/13/24 08:00 10/13/24 08:26
Pantoprazole Sodium 40 Mg/10 Ml Vial IV 11/10/24 07:59 40 mg
DAILY NATALIE Administration
Polyethylene Glycol 17 grams 10/14/24 08:00
Polyethylene Glycol Powder 17 Grams Packet TUBE 11/11/24 07:59
DAILY NATALIE
Sodium Chloride 0 flush 10/12/24 23:00
Sodium Chloride 0.9% (Flush) Syringe IV 11/09/24 22:59
PER PROTOCOL NATALIE
Sodium Chloride 10 ml 10/13/24 08:00 10/13/24 08:26
Sodium Chloride 0.9% (Preservative Free) 10 Ml Vial IV 11/10/24 07:59 10 ml
DAILY NATALIE Administration
[2024-10-14 09:03] LABS: Glucose - Point of Care 100 mg/dl (70-99)
[2024-10-14 09:06] VITALS: BP 104/53
[2024-10-14] MEDS: HEPARIN 5000 UNITS SC (09:09)
[2024-10-14] MEDS: MIRALAX 17 GRAMS TUBE (09:09)
[2024-10-14] MEDS: PROTONIX IV 40 MG IV (09:09)
[2024-10-14] MEDS: NSS (PRESERVATIVE FREE) 10 ML IV (09:10)
[2024-10-14] MEDS: NEO-SYNEPHRINE 250 IV (09:35)
[2024-10-14] MEDS: SODIUM BICARBONATE 1150 MEQ IV (09:53)
[2024-10-14 09:57] LABS: Glucose - Point of Care 93 mg/dl (70-99)
--- NOTE | 2024-10-14 10:01 | W.PN.CARDCBS ---
Today's Communication / Plan
-
Remains in sinus rhythm off amiodarone
Continue supportive care
We will check echocardiogram tomorrow
Impression / Plan
-
Assessment:
Respiratory arrest
Possible cardiac arrest
Septic shock
Multi lobar pneumonia
Elevated troponin
Paroxysmal atrial fibrillation
Type 2 diabetes
Recommendation:
She was found down and in what seems to be described primarily as respiratory arrest. She also described that she received CPR and 1 dose of epinephrine and subsequently AED recommended no shock. This would suggest cardiac arrest as well. The
first available ECG from the field finds atrial fibrillation with a rapid ventricular rate of 140 bpm, right bundle branch block. Subsequent EKG finds sinus tachycardia, no bundle branch block and no ST segment elevations. Additionally she
remained hypotensive, febrile, chest x-ray findings of multi lobar pneumonia and overall presents with a clinical picture of septic shock.
There is slight troponin elevation with increase in troponin from 0.156 at initial presentation to 1.4 this morning. This likely represents non-TN troponin elevation with elevation secondary to acute illness with cardio respiratory as well as
septic shock.
There are now ongoing discussion regarding goals of care given overall poor prognosis. Code status has been changed to DNR and DNI with family wishes to avoid further heroic measures if she were to deteriorate. There also discussions ongoing
regarding continuing life support versus terminal extubation with transition to comfort care measures.
Supportive care for septic shock
Currently on multiple pressors to maintain hemodynamic stability, wean as blood pressure tolerates
Worsening transaminitis
Likely shock liver
While she did demonstrate paroxysmal atrial fibrillation
She is now in sinus rhythm/sinus bradycardia, initially on intravenous amiodarone however while the nurse was turning her she became bradycardic to the 30s briefly with transient PEA
Amiodarone stopped 10/13
She may have paroxysms of atrial fibrillation but as long as this does not result in significant hypotension would continue to hold amiodarone today
While there is troponin elevation I do not believe this represents acute coronary syndrome or TN related troponin elevation
I would not start heparin for any suspected acute coronary syndrome
Eventually if she clinically improves there can be consideration for anticoagulation primarily based on atrial fibrillation related thromboembolic risk reduction
Echocardiogram is ordered for tomorrow
Management of multi lobar pneumonia as per primary service and pulmonary critical care
Renal disease, uncertain of acuity, creatinine this hospital stay has essentially been stable between 1.8 and 1.9
CCT 31 min
Progress Note - Lacquer Shader
Subjective
Date of Service: October 14, 2024
Ventilated, no purposeful response
Objective
Labs:
10/14/24 03:47
10/14/24 03:47
Labs
Hgb 8.8 g/dL (12.0-16.0) L 10/14/24 03:47
Hct 25.9 % (37.0-47.0) L 10/14/24 03:47
Plt Count 197 10^3/uL (130-400) D 10/14/24 03:47
PT 14.9 Sec (11.4-14.6) H 10/12/24 19:36
INR 1.14 10/12/24 19:36
APTT 32.5 Sec (23.4-35.0) 10/13/24 13:23
Sodium 138 mmol/L (135-145) 10/14/24 03:47
Potassium 3.6 mmol/L (3.5-5.1) 10/14/24 03:47
BUN 38 mg/dl (7-17) H 10/14/24 03:47
Creatinine 1.9 mg/dL (0.6-1.0) H 10/14/24 03:47
Glucose 131 mg/dl (70-99) H 10/14/24 03:47
Troponins
10/12/24 10/13/24 10/13/24
19:36 04:51 04:51
Troponin I 0.156 H* Cancelled 1.410 H*
10/13/24 10/13/24
13:23 18:00
Troponin I 2.440 H* 2.900 H*
Vital Signs and I&O:
Vital Signs
Temp Pulse Resp BP Pulse Ox
97.7 F 60 24 104/53 99
10/14/24 08:00 10/14/24 09:30 10/14/24 09:30 10/14/24 09:06 10/14/24 09:30
Vital Signs
Temp Pulse Resp BP Pulse Ox
97.7 F 60 24 104/53 99
10/14/24 08:00 10/14/24 09:30 10/14/24 09:30 10/14/24 09:06 10/14/24 09:30
Intake & Output
10/12/24 10/13/24 10/14/24 10/15/24
06:59 06:59 06:59 06:59
Intake Total 347.8 / 1331.8 5124.3 / 5231.3 307.7 / 307.7
Output Total 375 / 375 785 / 855 175 / 175
Balance -27.2 / 956.8 4339.3 / 4376.3 132.7 / 132.7
Physical Exam
Physical Exam
Mechanically ventilated, no purposeful response
Regular rate and rhythm with normal S1 and S2, no S3 no S4.
Coarse breath sounds anteriorly throughout
+3 lower extremity edema bilaterally
--- NOTE | 2024-10-14 10:30 | PTCARENOTE ---
Mohsen titrated up for MAP 53, RASS -3...Fentnyl gtt turned off. Pt taken for CT head per orders along with PCT and RT. Tolerated well. returned to room without incident.
[2024-10-14 11:10] LABS: Glucose - Point of Care 97 mg/dl (70-99)
[2024-10-14 11:11] VITALS: BP 117/94
[2024-10-14 11:41] VITALS: BP 115/94
[2024-10-14 11:48] VITALS: BP 122/63
[2024-10-14 12:08] LABS: Glucose - Point of Care 80 mg/dl (70-99)
[2024-10-14] MEDS: SUBLIMAZE 50 MCG IV ×2 (12:48→13:50)
[2024-10-14 12:49] VITALS: BP 123/65
[2024-10-14] MEDS: ATIVAN 1 MG IV ×2 (13:49→14:28)
[2024-10-14] MEDS: ZOFRAN 4 MG IV (13:54)
--- NOTE | 2024-10-14 13:59 | PTCARENOTE ---
PRN Ativan, Fent and Zofran given at this time for agitation and coughing/gagging. Dr. Roy with family for long GOC discussion earlier, Pts family has elected to terminally extubate. Orders for comfort care and associated meds rec'd. data conversion analyst
called.
[2024-10-14] MEDS: SUBLIMAZE 100 MCG IV (14:28)
--- NOTE | 2024-10-14 14:38 | RESPNOTE ---
1435-- patient extubated at this time with comfort a priority, RN and family bedside extubated without incident
--- NOTE | 2024-10-14 14:38 | PTCARENOTE ---
Pt terminally extubated at 14:35. Daughter and Daughter in law at bedside. Chemical Instrumentation Officer in room.
--- NOTE | 2024-10-14 15:04 | PTCARENOTE ---
Pt asytole on tele at 15:00, Dr. Roy notified, came to bedside to pronounce. Family at bedside, emotional support provided.
--- NOTE | 2024-10-14 16:04 | CHAP ---
Responded to nurse's request for a visit to support loving daughter Jes and daughter in law Bonnie, as Adriana 'Clotilde' was terminally extubated. The daughters asked for prayer, which was offered, along with much emotional support.
--- NOTE | 2024-10-14 16:05 | W.PN.DEATH ---
Pronouncement of
-
Called to see patient to pronounce. awake overnight monitor showed that she went asystole at 3 PM on 10/14/2024
No spontaneous heart tones or respirations noted.
Patient not responsive to verbal stimuli.
Patient was pronounced at 3:05 PM on 10/14/2024
Time of : 15:05
Date of : 10/14/24
Cause of : Acute hypoxic respiratory failure due to hypoxic�ischemic encephalopathy due to xwq-wa-hghkslkw cardiac arrest in the setting of aspiration pneumonia
Family Notified: Yes
--- NOTE | 2024-10-15 08:18 | W.DCSUMMARY ---
Discharge Summary
Discharge Data
Date of Admission: 10/12/24
Date of Discharge: 10/14/24
-
Pending Results: No
Hospital Course
Principal Diagnosis:
Dpz-rv-rcybcxbn cardiac arrest
Hypomagnesemia
Acute hypoxemic respiratory failure
Septic shock secondary to presumed community acquired pneumonia
Prerenal ALONSO/ renal failure with metabolic acidosis
Shocked liver
New onset A fib with RVR
Elevated troponin suspect non-ischemic myocardial injury
Chronic Diagnoses:�
Non-insulin dependent diabetes with neuropathy
GERD
Dyslipidemia
Consultations:�
[employer] Supervisor
Cardiology
Neurology
Procedures:�
None
Clinical course:�
This is a 79 year old female with past medical history as stated above who presented with gdn-lv-zychmcfc cardiac arrest.
She was intubated on site and was continued with mechanical ventilation in the hospital until terminal extubation.
She did receive pressor support while in the hospital (at one point, she was on 3 pressors); these were stopped at the time of transitioning to comfort measures.
She remained clinically decompensated, and developed multiorgan failure, and goals of care was discussed with her family.
She was transitioned to comfort measures and underwent terminal extubation.
She peacefully on 10/14/2024, and was pronounced at 3:05 pm.
Her family was at bedside at pronouncement.
Discharge Plan
-
Patient Disposition:
Discharge Date and Time
Discharge Date/Time: 10/14/24 15:05
Print Language: LAO
== END 2024-10-14 15:05 | disposition expired | DRG 871 ==
LOC: ICU 23:15
PROVIDERS: Internal Medicine; Nurse Practitioner Family; ADMITTING PHYSICIAN Hospitalist; ATTENDING PHYSICIAN Internal Medicine; CONSULT PHYSICIAN Internal Medicine Cardiovascular Disease; CONSULT PHYSICIAN Psychiatry & Neurology Neurology; EMERGENCY PHYSICIAN Emergency Medicine; OTHER PHYSICIAN Internal Medicine Critical Care Medicine
PROC: 5A1935Z Respiratory Ventilation, Less than 24 Consecutive Hours (ICD-10-PCS; 2024-10-12)
PROC: 0BH17EZ Insertion of Endotracheal Airway into Trachea, Via Natural or Artificial Opening (ICD-10-PCS; 2024-10-12)
DX: A41.9 Sepsis, unspecified organism (principal); J69.0 Pneumonitis due to inhalation of food and vomit; J96.01 Acute respiratory failure with hypoxia; R65.21 Severe sepsis with septic shock; K72.00 Acute and subacute hepatic failure without coma; G93.1 Anoxic brain damage, not elsewhere classified; N17.9 Acute kidney failure, unspecified; E87.20 Acidosis, unspecified; I5A Non-ischemic myocardial injury (non-traumatic); L03.115 Cellulitis of right lower limb; Z68.41 Body mass index [BMI] 40.0-44.9, adult; I24.89 Other forms of acute ischemic heart disease; Z60.2 Problems related to living alone; I48.0 Paroxysmal atrial fibrillation; E83.42 Hypomagnesemia; Z66 Do not resuscitate; D64.9 Anemia, unspecified; K21.9 Gastro-esophageal reflux disease without esophagitis; G89.29 Other chronic pain; E11.40 Type 2 diabetes mellitus with diabetic neuropathy, unspecified; I45.10 Unspecified right bundle-branch block; E66.01 Morbid (severe) obesity due to excess calories; Z51.5 Encounter for palliative care; Z11.52 Encounter for screening for COVID-19; E11.65 Type 2 diabetes mellitus with hyperglycemia; Z79.4 Long term (current) use of insulin; Z79.899 Other long term (current) drug therapy; Z87.440 Personal history of urinary (tract) infections; I46.8 Cardiac arrest due to other underlying condition
CPT/HCPCS: 36556; 43752; 51702; 70450; 71045; 71275; 74174; 76937; 80048; 80053; 80143; 80179; 80202; 80306; 81003; 81015; 82077; 82805; 82962; 83036; 83605; 83735; 84100; 84478; 84484; 85025; 85027; 85610; 85730; 87040; 87070; 87086; 87205; 87449; 87502; 87641; 87811; 87899; 93005; 94002; 94003; 96361; 96365; 96366; 96367; 96375; 99291; Q9967